=== PATIENT | male | born 1945 | race Caucasian/White ===

== ENCOUNTER 2016-08-09 11:09 | Inpatient (IN) | payer OTHER, MEDICAID ==
[2016-04-06 17:33] VITALS: Ht 170.2 cm; Wt 73.5 kg
[~2016-08-09] VITALS: Ht 170.2 cm; Wt 73.5 kg
[~2016-08-09 11:09] MED LIST: AMLO5TAB4 PO; PARO-41 PO; PRAV20TA PO; TRAZ-123 PO
[2016-08-09 11:15] VITALS: BP 124/83; PULSE 85; RESP 16; O2SAT 96
--- NOTE | 2016-08-09 11:15 | NUR ---
Arrived via BLS ambulance for eval of right knee pain after fall. Patient to ER bed 5 to gown for evaluation. Side rails up. Report given to Rosalva ANDERSON.
--- NOTE | 2016-08-09 11:20 | NUR ---
Dr Lucio at bedside examining patient
--- NOTE | 2016-08-09 11:30 | NUR ---
16# FR In and Out catheter with use of sterile technique. Immediate return of 100 ml urine noted. Urine sample collected and sent to lab. Pt tolerated procedure . Patient unable to toilet self.
--- NOTE | 2016-08-09 11:35 | NUR ---
Pt brought by BLS, A&O to name ,Hx of dementia, Pt had a mechanical fall yesterday, c/o R knee pain 2/10, skin pink and warm, cap refill <3, VSS, no open wounds noted.
[2016-08-09 12:13] LABS: BASOPHILS # (AUTO) 0.1 K/uL (0.0-0.2); BASOPHILS % (AUTO) 0.7 % (0.0-2.0); EOSINOPHILS # (AUTO) 0.1 K/uL (0.0-0.4); EOSINOPHILS % (AUTO) 0.8 % (0.0-4.0); HEMOGLOBIN 16.1 g/dL (14.0-18.0); LYMPHOCYTES # (AUTO) 1.5 K/uL (1.0-5.5); LYMPHOCYTES % (AUTO) 16.7 % (20.5-51.5); MEAN CORPUSCULAR HEMOGLOBIN 25 pg (27-31); MEAN CORPUSCULAR HGB CONC 32 % (32-36); MEAN CORPUSCULAR VOLUME 79 fL (79.0-98.0); MONOCYTES # (AUTO) 0.9 K/uL (0.0-1.0); MONOCYTES % (AUTO) 10.4 % (1.7-9.3); NEUTROPHILS # (AUTO) 6.2 K/uL (1.8-7.7); NEUTROPHILS % (AUTO) 71.4 % (40.0-70.0); PLATELET COUNT (AUTO) 170 K/uL (130-430); RED BLOOD CELL COUNT(AUTO) 6.47 MIL/uL (4.2-6.2); RED CELL DISTRIBUTION WIDTH 13.3 % (9.0-15.0); WHITE BLOOD COUNT (AUTO) 8.8 K/uL (4.8-10.8)
[2016-08-09 12:24] LABS: ANION GAP 5 (5-15); CALCIUM 9.3 mg/dL (8.4-11.0); CHLORIDE 106 mmol/L (98-107); CREATININE 0.96 mg/dL (0.55-1.30); GLUCOSE 143 mg/dL (70-99); POTASSIUM 3.6 mmol/L (3.5-5.1); SODIUM SERUM 140 mmol/L (136-145); UREA NITROGEN, BLOOD 16 mg/dL (8-21)
[2016-08-09 12:27] LABS: PROTHROMBIN TIME 10.9 SECS (9.5-12.5)
[2016-08-09 12:35] LABS: ALANINE AMINOTRANSFERASE 15 U/L (12-78); ALBUMIN 3.5 g/dL (3.4-4.8); ASPARTATE AMINOTRANSFERASE 20 U/L (10-37); LIPASE 70 U/L (73-393); TOTAL BILIRUBIN 0.5 mg/dL (0.0-1.0)
[2016-08-09 12:40] LABS: BILIRUBIN,URINE NEGATIVE (NEGATIVE); BLOOD, URINE 2+ (NEGATIVE); CLARITY/URINE CLEAR (CLEAR); COLOR,URINE YELLOW (YELLOW); GLUCOSE,URINE NEGATIVE (NEGATIVE); KETONES,URINE NEGATIVE (NEGATIVE); LEUKOCYTE ESTERASE ,URINE NEGATIVE (NEGATIVE); NITRITE, URINE NEGATIVE (NEGATIVE); PROTEIN URINE NEGATIVE (NEGATIVE); UROBILINOGEN,URINE 0.2 (0.2-1.0)
[2016-08-09 13:01] LABS: BACTERIA,URINE RARE /HPF (None Seen); MUCUS,URINE 1+ /LPF (None Seen); RBC,URINE 0-3 /HPF (0-3); WBC,URINE 0-3 /HPF (0-3)
[2016-08-09] MEDS ORDERED: RISP0.253 PO (13:50)
[2016-08-09] MEDS ORDERED: AMLO5TAB4 PO (13:50)
--- NOTE | 2016-08-09 14:13 | NUR ---
Pt on stable condition, denies pain or discomfort
--- NOTE | 2016-08-09 14:58 | NUR ---
Admission Note Received patient from ER with diagnosis of ataxia. Initial Plan of Care discussed-with daughter, verbalized understanding. Family at bedside. Daughter oriented to room, call light, pain management and safety.
[2016-08-09 15:00] VITALS: BP 135/86; PULSE 76; RESP 18; TEMP 97.6; O2SAT 95
--- NOTE | 2016-08-09 15:05 | NUR ---
Patient will be admitted to care of Dr Pretty. Admitted to medsurg unit. Will go to room 121A. Belongings list completed. Summary report printed. Report given to admitting nurse .
--- NOTE | 2016-08-09 15:15 | NUR ---
Routine Patient resting comfortably in bed with Dr. Pretty at bedside. Patient stable.
--- NOTE | 2016-08-09 15:28 | NUR ---
NEURO CONSULT Spoke with Sidra regarding request for consultation with Dr. Castle ([phone]) for reason: ataxia. Dr. Diamond is currently elderly companion.
[2016-08-09 16:44] VITALS: BP 140/93; PULSE 76; RESP 20; TEMP 98.8; O2SAT 92
--- NOTE | 2016-08-09 16:45 | NUR ---
Routine Patient resting comfortably in bed with daughterBonnie at bedside. No distress noted at this time. No complaint of pain. Patient stable.
--- NOTE | 2016-08-09 17:31 | NUR ---
PSYCH CONSULT Spoke with exchange regarding request for consultation with Dr. Ramos ([phone]) for reason: dementia.
--- NOTE | 2016-08-09 19:50 | NUR ---
PM SHIFT ASSESSMENT Received patient awake in bed, aox1. Confused unable to answer questions appropriately. Patient in no distress, vital signs stable. IV line placed to left forearm with 20 gauge catheter. Will watch for signs of infiltration. Safety and fall measures in place, will closely monitor.
[2016-08-09 20:00] VITALS: BP 113/53; PULSE 76; RESP 18; TEMP 97.7; O2SAT 95
[2016-08-09] MEDS ORDERED: traZODone HCL 50 MG TABLET (DESYREL) PO SCH (21:00)
[2016-08-09] MEDS: PRAVASTATIN SODIUM 20 MG TABLET (PRAVACHOL) PO SCH (21:00)
[2016-08-09] MEDS ORDERED: risperiDONE 0.25 MG TABLET (RisperDAL) PO SCH (21:00)
--- NOTE | 2016-08-09 21:45 | NUR ---
RN ROUNDS Patient resting comfortably, respirations even and unlabored, repositioned for comfort, safety measures in place, will closely monitor.
[2016-08-09 23:37] VITALS: BP 128/79; PULSE 69; RESP 18; TEMP 97.1; O2SAT 97
--- NOTE | 2016-08-09 23:38 | NUR ---
RN ROUNDS Patient sleeping, respirations even and unlabored, vital signs stable. Repositioned and turned with pillow support. Safety measures in place, will closely monitor.
--- NOTE | 2016-08-10 01:17 | NUR ---
RN ROUNDS Patient continues to sleep, respirations even and unlabored, vital signs are stable. Repositioned and turned. Safety measures in place, will closely monitor.
--- NOTE | 2016-08-10 03:26 | NUR ---
RN ROUNDS Patient resting comfortably in bed, no distress noted, repositioned with pillow support, safety measures in place, will closely monitor.
--- NOTE | 2016-08-10 04:32 | NUR ---
RN ROUNDS Patient awake, in no distress, no facial grimacing noted for pain, vital signs stable. Repositioned with pillow support, safety measures in place, will closely monitor.
[2016-08-10 05:25] VITALS: BP 123/93; PULSE 64; RESP 18; TEMP 98.7; O2SAT 97
--- NOTE | 2016-08-10 06:27 | NUR ---
RN ROUNDS Patient resting comfortably in bed, no distress noted, repositioned with pillow support, safety measures maintained through out shift, needs attended to, will closely monitor until report given to am nurse.
--- NOTE | 2016-08-10 06:51 | NUR ---
AM ROUNDS Pt sleeping. easily wakes with verbal stimuli...Pt pleasantly confused. Alert only to name...HL to LFA flushes well..Pt denies pain at this time...Nurse will remain in room...Will cont to monitor
--- NOTE | 2016-08-10 06:53 | NUR ---
MD Dr. Ramos (psych) made rounds at patients bedside, new medication orders ordered.
--- NOTE | 2016-08-10 08:00 | NUR ---
DAUGHTER AT BEDSIDE FEEDING PT
[2016-08-10] MEDS ORDERED: PARoxetine HCL 20 MG TABLET PO SCH (09:00)
[2016-08-10] MEDS: PARoxetine HCL 20 MG TABLET PO SCH (09:59)
[2016-08-10] MEDS: risperiDONE 0.25 MG TABLET (RisperDAL) PO SCH (10:00)
[2016-08-10] MEDS: amLODIPine BESYLATE 5 MG TABLET PO SCH (10:00)
--- NOTE | 2016-08-10 10:03 | NUR ---
Nutrition Update Audie Scale 18 noted. Pt admitted for ataxia. Diet: regular BMI: 25.4 kg/m2 RD to follow per nutrition care standards.
--- NOTE | 2016-08-10 10:45 | NUR ---
PT UP AMBULATING W/FWW & PHYSICAL THERAPY
--- NOTE | 2016-08-10 12:00 | NUR ---
FREDI AND HARRISON FROM [facility] REQUESTED FOR TO CHANGE RIPERADAL TO DEPAKOTE, BECAUSE RIPERADAL HAS AFFECTED HIS GAIT...IF ANY QUESTIONS CALL HARRISON (COMMUNITY OUTREACH ADVOCATE)[phone]
--- NOTE | 2016-08-10 14:02 | NUR ---
DR GUIDRY AT BEDSIDE SPEAKING WITH HALLE (DAUGHTER) REGARDING PLAN OF CARE
--- NOTE | 2016-08-10 16:00 | NUR ---
ROUNDS PT STABLE...MOVING AROUND IN BED. PT CAN NOT SIT/LIE STILL...WILL CONT TO MONITOR
[2016-08-10] MEDS ORDERED: LORazepam 2 MG/ML VIAL IVP ONE (16:15)
--- NOTE | 2016-08-10 18:00 | NUR ---
BORDER MACHINE OPERATOR AT BEDSIDE FOR DOPPLER
--- NOTE | 2016-08-10 18:05 | NUR ---
IV ATIVAN GIVEN BY COVERING NURSE PRIOR TO ULTRASOUND
--- NOTE | 2016-08-10 19:00 | NUR ---
SLEEPING PT STABLE..SLEEPING AT THIS TIME...D/O AT BEDSIDE
--- NOTE | 2016-08-10 20:00 | NUR ---
ROUNDS PATIENT SLEEPING AT THIS TIME, AROUSABLE TO LIGHT TOUCH, NOT IN DISTRESS, VITALS STABLE. ASSESSMENT DONE AND DOCUMENTED. SEE FLOWSHEET. NEEDS ATTENDED TO. REPOSITIONED AND MADE COMFORTAB LE. SAFETY AND FALL PRECAUTION MEASURES IN PLACED. SITTER AT THE BEDSIDE FOR SAFETY. BED IN LOW AND LOCKED POSITION. CALL LIGHT WITHIN REACH.
[2016-08-10] MEDS: PRAVASTATIN SODIUM 20 MG TABLET (PRAVACHOL) PO SCH (21:00)
[2016-08-10] MEDS: traZODone HCL 50 MG TABLET (DESYREL) PO SCH (21:00)
[2016-08-10] MEDS: risperiDONE 1 MG TABLET (RisperDAL) PO SCH (21:00)
--- NOTE | 2016-08-10 21:00 | NUR ---
NOTES DUE MEDICATIONS NOT GIVEN AT THIS TIME, PATIENT STILL ASLEEP AND SGTILL VERY DROWSY WHEN AWAKEN TO. WILL CONTINUE TO MONITOR.
[2016-08-10 23:00] VITALS: BP 133/80; PULSE 66; RESP 18; TEMP 98.6; O2SAT 96
[2016-08-10] MEDS ORDERED: ASPIRIN 81 MG TABLET(ECOTRIN) PO ONE (23:00)
--- NOTE | 2016-08-11 | NUR ---
PATIENT RESTING: Patient resting quietly. No acute distress noted. Vital signs within normal range.
--- NOTE | 2016-08-11 02:15 | NUR ---
ROUNDS PATIENT ASLEEP, NO SOB NOTED, VITALS STABLE, WILL CONTINUE TO MONITOR.
--- NOTE | 2016-08-11 04:00 | NUR ---
PATIENT RESTING: Patient resting quietly. No acute distress noted. Vital signs within normal range.
[2016-08-11 04:07] VITALS: BP 124/62; PULSE 70; RESP 18; TEMP 98; O2SAT 21; O2SAT 97
--- NOTE | 2016-08-11 06:50 | NUR ---
CLOSING NOTES PATIENT STILL ASLEEP, VITALS STABLE, NO SIGNS OF ANY PAIN AND DISCOMFORT AT THI STIME. ALL NEEDS MET. WILL ENDORSE TO INCOMING SHIFT NURSE.
[2016-08-11 06:58] LABS: CHOLESTEROL 176 mg/dL (<200); HDL CHOLESTEROL 62 mg/dL (>45); LDL CHOLESTEROL 93 mg/dL (<100); TRIGLYCERIDES 62 mg/dL (30-150)
[2016-08-11 08:00] VITALS: BP 142/90; PULSE 84; RESP 20; TEMP 98.6; O2SAT 94
--- NOTE | 2016-08-11 08:00 | NUR ---
RECEIVED PT IN BED, SITTER AT BEDSIDE, PT IS ALERT AND AWAKE, NO C/O PAIN. NO DISTRESS.
[2016-08-11] MEDS: PARoxetine HCL 20 MG TABLET PO SCH (08:27)
[2016-08-11] MEDS: amLODIPine BESYLATE 5 MG TABLET PO SCH (08:28)
[2016-08-11] MEDS: risperiDONE 0.25 MG TABLET (RisperDAL) PO SCH (08:28)
[2016-08-11 12:00] VITALS: BP 116/66; PULSE 85; RESP 21; TEMP 99.1; O2SAT 97
--- NOTE | 2016-08-11 13:33 | NUR ---
PAGED DR GUIDRY FOR ORDER FOR ATIVAN FOR MRI
[2016-08-11] MEDS ORDERED: LORazepam 2 MG/ML VIAL IVP ONE (14:00)
--- NOTE | 2016-08-11 14:02 | NUR ---
Notes No answer at MRI's extension.
--- NOTE | 2016-08-11 14:30 | NUR ---
PHYSICAL THERAPY CO-SIGN The Physical Therapy Progress Notes documented by Science Intern have been reviewed. Reviewed/Co-Signed by: Meg Esteban, PT Documentation Done by: Franklyn Emery PTA I concur with the documentation of this ANGLE SHEAR OPERATOR. Plan: continue PT as per plan of care. Addendum: 08/11/16 at 1532 by Meg Esteban PT Amended: Links added.
--- NOTE | 2016-08-11 14:45 | NUR ---
PT TAKEN TO MRI.
[2016-08-11 16:00] VITALS: BP 139/95; PULSE 98; RESP 21; TEMP 99.2; O2SAT 98
--- NOTE | 2016-08-11 16:00 | NUR ---
PT BACK FROM MRI WITH NO DISTRESS, PT IN BED, SITTER AT BEDSIDE.
--- NOTE | 2016-08-11 18:00 | NUR ---
PT IN BED, IN BED, SITTER ASSISTING PT WITH DINNER , NO S/S PAIN.
[2016-08-11 19:15] VITALS: BP 126/85; PULSE 96; RESP 20; TEMP 98.8; O2SAT 98
--- NOTE | 2016-08-11 19:26 | NUR ---
notes received the pt from the day nurse pt very confused keeps pulling the linen off.family are here at the bedside.saline lock intact to lt forearm.no redness or swelling noted. call light within reach.safety measures in progress.continue to monitor.
--- NOTE | 2016-08-11 19:40 | NUR ---
notes bed alarm is on.continue to monitor.
--- NOTE | 2016-08-11 19:53 | NUR ---
notes pt incontinent of urine,pt cleaned ,linen changed.continue to monitor.
[2016-08-11] MEDS: risperiDONE 1 MG TABLET (RisperDAL) PO SCH (20:50)
[2016-08-11] MEDS: traZODone HCL 50 MG TABLET (DESYREL) PO SCH (20:51)
[2016-08-11] MEDS: PRAVASTATIN SODIUM 20 MG TABLET (PRAVACHOL) PO SCH (20:51)
--- NOTE | 2016-08-11 20:54 | NUR ---
notes pt resting with no complaints ,continue to monitor.
--- NOTE | 2016-08-11 23:25 | NUR ---
NOTES PT SLEEPING,NO DISTRESS NOTED.CONTINUE TO MONITOR.
[2016-08-12 00:04] VITALS: BP 128/82; PULSE 87; RESP 18; TEMP 98.2; O2SAT 98
--- NOTE | 2016-08-12 03:30 | NUR ---
notes pt sleeping,no distress noted.appears comfortable.continue to monitor.
--- NOTE | 2016-08-12 05:39 | NUR ---
notes pt incontinent of urine,pt cleaned,linen changed.pt with no complaints.bed alarm is on.
--- NOTE | 2016-08-12 05:45 | NUR ---
notes dr ramsey is at the bedside.
--- NOTE | 2016-08-12 06:14 | NUR ---
closing notes pt awake watching tv,remains confused.will endorse the care of the pt to the day nurse.
--- NOTE | 2016-08-12 07:30 | NUR ---
AM ROUNDS Pt lying in bed. Awake, confused, unable to follow commands. HL to LFA flushes well...D/O at bedside...will cont to monitor
[2016-08-12 08:00] VITALS: BP 139/89; PULSE 89; RESP 20; TEMP 98.6; O2SAT 97
[2016-08-12] MEDS: PARoxetine HCL 20 MG TABLET PO SCH (08:15)
[2016-08-12] MEDS: ASPIRIN 81 MG TAB.CHEW PO SCH (08:16)
[2016-08-12] MEDS: amLODIPine BESYLATE 5 MG TABLET PO SCH (08:32)
--- NOTE | 2016-08-12 09:00 | NUR ---
INCONTINENT OF URINE LEANNE-CARE DONE...LINEN AND GOWN CHANGED...WILL CONT TO MONITOR
--- NOTE | 2016-08-12 10:00 | NUR ---
NO CHANGES, REMAINS PLEASANTLY CONFUSED PT CONTINUOUSLY MOVING AROUND IN BED, UNABLE TO SIT STILL. HOLDING AND TWISTING BLANKET...WILL CONT TO MONITOR
--- NOTE | 2016-08-12 12:30 | NUR ---
INCONTINENT OF STOOL PT HAD A BASEBALL SIZE SOFT FORMED BM...PT CLEANED, LINEN AND GOWN CHANGED..WILL CONT TO MONITOR
[2016-08-12] MEDS: QUEtiapine FUMARATE 25 MG TABLET PO SCH ×2 (13:05→18:01)
--- NOTE | 2016-08-12 13:22 | NUR ---
ROUNDS pt stable. confused. unable to follow commands, talking to himself...D/O remains at bedside...will cont to monitor
--- NOTE | 2016-08-12 14:30 | NUR ---
PHYSICAL THERAPY CO-SIGN The Physical Therapy Progress Notes documented by Sfdc Architect have been reviewed. Reviewed/Co-Signed by: Meg Esteban, PT Documentation Done by: David Queen PTA I concur with the documentation of this DENTAL TECHNICIAN INSTRUCTOR. Plan: continue PT as per plan of care. Addendum: 08/12/16 at 1446 by Meg Esteban PT Amended: Links added.
--- NOTE | 2016-08-12 15:16 | NUR ---
SLEEPING PT SLEEPING, RESPIRATIONS EVEN/UNLABORED. SNORING...D/O AT BEDSIDE...WILL CONT TO MONITOR
--- NOTE | 2016-08-12 15:30 | NUR ---
DISCHARGE PLANNING Faxed SNF referral to [facility] [phone] [phone] for possible discharge to SNF. CM to follow up in AM with bed assignment. Transportation packet in nurses station. Any ambulance can be arranged. Addendum: 08/12/16 at 1713 by Nydia Lee DP Called [facility] spoke with office manager receptionist who stated admitting is gone for the day advised DCP to follow up in AM. Note left for CM to follow up in AM.
[2016-08-12 16:00] VITALS: BP 130/94; PULSE 74; RESP 18; TEMP 98.2; O2SAT 96
--- NOTE | 2016-08-12 18:17 | NUR ---
PT SITTING UP IN BED EATING DINNER PT CALM, NURSE AT BEDSIDE ASSISTING WITH FOOD
[2016-08-12 19:30] VITALS: BP 129/95; PULSE 81; RESP 20; TEMP 97; O2SAT 97
--- NOTE | 2016-08-12 19:30 | NUR ---
NOTES; SEEN PT IN BED TALKING TO HIMSELF. PT IS VERY CONFUSED. REORIENTED TO NAME, PLACE,TIME, AND SURROUNDING. NO APPARENT DISTRESS NOTED. VITAL SIGNS STABLE, AFEBRILE. IV SALINE LOCK TO THE LEFT FOREARM, PATENT. NO SIGNS OF INFECTION NOTED ON IV SITE. OBSERVED PT MOVE AROUND AND REPOSITION HIMSELF. NO FACIAL GRIMACING OF PAIN NOTED. BED LOCKED, AND IN LOW POSITION. SIDE RAILS UP X3. CALL LIGHT WITHIN REACH. DIRECT OBSERVER REMAIN AT BEDSIDE.
[2016-08-12] MEDS: PRAVASTATIN SODIUM 20 MG TABLET (PRAVACHOL) PO SCH (20:19)
[2016-08-12] MEDS: traZODone HCL 50 MG TABLET (DESYREL) PO SCH (20:19)
[2016-08-12] MEDS: QUEtiapine FUMARATE 100 MG TABLET PO SCH (20:20)
--- NOTE | 2016-08-12 20:20 | NUR ---
NOTES; SCHEDULED PO MEDICATION CRUSHED AND ADMINISTERED WITH APPLE SAUCE. PT TOLERATED MEDS WELL.
--- NOTE | 2016-08-12 22:10 | NUR ---
NOTES; INCONTINENT OF URINE. TOTAL BED BATH GIVEN, TOTAL LINEN CHANGED. NO APPARENT DISTRESS NOTED.SAFETY MEASURES IN PROGRESS. .DIRECT OBSERVER REMAIN AT BEDSIDE.
--- NOTE | 2016-08-12 23:15 | NUR ---
NOTES; IN BED, CONFUSED. ATTEMPTS TO GET OUT OF BED. PT REORIENTED TO NAME, PLACE,TIME, AND SURROUNDING. NO FACIAL GRIMACING OF PAIN NOTED. SAFETY MEASURES IN PROGRESS. DIRECT OBSERVER AT BEDSIDE AT ALL TIMES.
[2016-08-13] VITALS: BP 110/80; PULSE 68; RESP 18; TEMP 96.9; O2SAT 94
--- NOTE | 2016-08-13 00:45 | NUR ---
NOTES; APPEARED TO BE SLEEPING, EYES CLOSED. RESPIRATION EVEN AND UNLABORED. NO ACUTE DISTRESS NOTED. SAFETY MEASURES IN PROGRESS. DIRECT OBSERVER AT BEDSIDE AT ALL TIMES.
--- NOTE | 2016-08-13 02:30 | NUR ---
NOTES; APPEARED TO BE SLEEPING, EYES CLOSED. RESPIRATION EVEN AND UNLABORED. NO ACUTE DISTRESS NOTED. SAFETY MEASURES IN PROGRESS. DIRECT OBSERVER AT BEDSIDE AT ALL TIMES.
--- NOTE | 2016-08-13 03:30 | NUR ---
NOTES; INCONTINENT OF URINE. BED BATH GIVEN, LINEN CHANGED. NO APPARENT DISTRESS NOTED. SAFETY MEASURES IN PROGRESS. DIRECT OBSERVER REMAIN AT BEDSIDE.
[2016-08-13 04:30] VITALS: BP 115/82; PULSE 66; RESP 18; TEMP 97.2; O2SAT 96
--- NOTE | 2016-08-13 05:00 | NUR ---
NOTES; APPEARED TO BE SLEEPING, EYES CLOSED. RESPIRATION EVEN AND UNLABORED. NO ACUTE DISTRESS NOTED. SAFETY MEASURES IN PROGRESS. DIRECT OBSERVER AT BEDSIDE AT ALL TIMES.
--- NOTE | 2016-08-13 06:33 | NUR ---
NOTES; RESTING QUIETLY, EASILY AROUSED. INCONTINENT OF URINE. BED BATH GIVEN, LINEN CHANGED. NO APPARENT DISTRESS NOTED. ALL NEEDS ATTENDED. SAFETY MEASURES MAINTAINED.DIRECT OBSERVER REMAIN AT BEDSIDE.
[2016-08-13 08:00] VITALS: BP 125/76; PULSE 64; RESP 18; TEMP 97.4; O2SAT 95
--- NOTE | 2016-08-13 08:00 | NUR ---
INITIAL NOTE PT LAYING DOWN, RESTING , EASY TO AROUSE, PT ORIENTED TO NAME ONLY, VERY CONFUSED, SPEAKS TO SELF AND OUT OF CONTEXT, NO S/S OF DISTRESS NOTED, VSS, IV SITE TO LFA INTACT, PATIENT, NO S/S OF INFILTRATION NOTED, SAFETY MEASURES IN PLACE, SITTER AT BEDSIDE, BED IN LOW PSOTION AND LOCKED, SIDE RAILS UP X4, CALL LIGHT WITHIN REACH,WILL FOLLOW UP
[2016-08-13] MEDS: QUEtiapine FUMARATE 25 MG TABLET PO SCH ×2 (09:39→14:31)
[2016-08-13] MEDS: amLODIPine BESYLATE 5 MG TABLET PO SCH (09:39)
[2016-08-13] MEDS: ASPIRIN 81 MG TAB.CHEW PO SCH (09:40)
[2016-08-13] MEDS: PARoxetine HCL 20 MG TABLET PO SCH (09:40)
--- NOTE | 2016-08-13 09:45 | NUR ---
ROUNDS AM MEDICATION PROVIDED, MEDICATION CRUSHED AND GIVEN WITH PUDDING, PT COOPERATIVE, RESPONDS WELL TO YI SPEAKING, SAFETY MEASURES IN PLACE, SITTER AT BEDSIDE, WILL FOLLOW UP
--- NOTE | 2016-08-13 12:00 | NUR ---
ROUNDS PT SITTING UP IN BED, SITTER AT BEDSIDE, MEAL TRAY SET UP AND AUTOMATION AND CONTROLS MANAGER AIDING IN FEEDING, PT TOLERATING MODERATLEY, HAS TO BE ENCOURAGED AND REMINDED TO KEEP ON EATING, SAFETY MEASURES IN PLACE, WILL FOLLOW UP
[2016-08-13 12:33] VITALS: BP 105/66; PULSE 74; RESP 19; TEMP 97.4; O2SAT 96
--- NOTE | 2016-08-13 14:00 | NUR ---
ROUNDS PT LAYING IN BED, TALKING TO SELF, CONFUSED, SITTER AT BEDSIDE, NO S/S OF DISTRESS OR COMPLAINT OF PAIN AT THIS TIME, SAFETY MEASURES IN PLACE, WILL FOLLOW UP
--- NOTE | 2016-08-13 15:02 | NUR ---
CM DC PLANNING PER CM DCP ASSESSMENT: "DISCUSSED PLAN OF CARE WITH Pt's DAUGHTER/HALLE WHO IS AN EMPLOYEE OF THIS FACILITY. HALLE STATED THAT PATIENT HAS BEEN DOING WELL AT [facility] AND SHE WOULD PREFER HE RETURNS THERE. IF SNF IS RECOMMENDED BY , THERE HER CHOICE IS [facility] WHERE HE WAS JUST RECENTLY. HALLE STATED SHE IS GOING OUT OF TOWN ON 08/11/16 AND THE PRIMARY CONTACT SHOULD BE HER BROTHER/MARLON: [phone] (CELL). IF THERE ARE ANY DC CONCERNS, MARLON WILL CONTACT HER TO DISCUSS". PER DR. GUIDRY AND DR. CLEMENT, THE POC IS FOR Pt TO GO TO SNF TO GET BETTER ORIENTED PRIOR TO GOING BACK TO THE [facility]. AND DR. CLEMENT IS WILL TO FOLLOW Pt AT [facility] BECAUSE THEY HAVE A LOCKED FACILITY THAT CAN MONITOR THE Pt MORE SAFELY DUE TO HIS WANDERING. Addendum: 08/13/16 at 1932 by Lyla Hutchison RN SPOKE WITH DIR OF MARKETING & ADMISSIONS/DYLAN FOR [facility] ABOUT HAVING Pt ADMITTED THERE ON THE LOCKED UNIT WITH DR. CLEMENT FOLLOWING S/P THIS IN-Pt STAY FOR MEDICATION STABILIZATION PRIOR TO Pt TRANSFERRING BACK TO THE [place] [facility]. INQUIRY SENT TO DYLAN AT FAX #; [phone]. NO CALL BACK OR MESSAGES RECEIVED BACK FROM [facility] REGARDING AVAILABLE BED OR ACCEPTANCE. CALLED TO SON/MARLON TO UPDATE RE: PLAN OF CARE; AND ASKED ABOUT Pt BEING TRANSFERRED TO [facility]. FOR DR. CLEMENT TO FOLLOW Pt UNTIL HE IS STABLE FOR RETURN TO [facility]. PER MARLON, HE STATED THAT HE AND SISTER/HALLE ARE NOT FAMILIAR WITH [facility]. AND WOULD PREFER FOR Pt TO GO TO [facility] OR [facility] (THAT ALSO HAS A LOCKED UNIT); AND, Pt HAS BEEN THERE RECENTLY. CM UNDERSTOOD FAMILY CONCERNS; AND, WILL F/UP WITH [facility] OR [facility] FOR AVAILABLE Pt IS READY TO DC TODAY IF MDs ARE IN AGREEMENT. 1549: SPOKE WITH YAYA AT [facility] WEEKEND INTAKE FOR [facility], [address] [place] IS AT [facility]; REFAXED INQUIRY SENT TO [facility] ON 08/12/16 AT 1530 TO: [phone]. NO CALL BACK BEFORE END OF WORKDAY. 1645: S/W DR. GUIDRY ABOUT Pt's TRANSFER TO [facility] LOCKED UNIT; AND, INFORMED THAT CM S/W SON/MARLON WHO STATED HE AND SISTER/HALLE WOULD PREFER Pt TO GO TO [facility] OR [facility] THAT ALSO HAS A LOCKED UNIT. CM TO HAVE MONDAY CM/NISHA FOLLOW-UP WITH DC TOMORROW, 08/14/16, IF BED AVAILABLE. DR. GUIDRY STATED HIS CONCERN WAS THAT Pt NOT FALL THRU THE CRACKS WITH THE MEDICATION STABILIZATION DR. SPANGLER HAS BEEN THE PSYCHIATRIST FOLLOWING THE Pt HERE AT [facility]. CALL BACK TO SON/MARLON AND LEARNED THAT Pt DOES NOT HAVE PART B INSURANCE MEDICARE COVERAGE HE HAS BEEN FOLLOWED AT [facility] UNDER HIS [facility] BENEFITS; AND, DISCUSSED AT THIS TIME THAT DUE TO LONG TIME WITHOUT MEDICARE PART B, Pt WOULD HAVE TO PAY VERY HIGH PREMIUMS TO OBTAIN PART B AT THIS DATE DUE TO PENALTIES THAT WOULD BE ADDED FOR DURATION OF HIM NOT HAVING COVERAGE. ADDITIONALLY, FAMILY ARE PAYING [id number] FOR Pt TO LIVE AT [facility]; AND THEY USE [facility] FOR MD VISITS. PER MARLON, FAMILY WOULD BE WILLING TO FOLLOW-UP WITH DR. SPANGLER AN OUT-Pt AND POSSIBLY PAY OUT OF POCKET FOR DR. SPANGLER MED THE [facility] FOLLOW-UP. FURTHER DISCUSSED WITH MARLON, THAT THEY CAN FIND OUT IF DR. SPANGLER WOULD SEE Pt AT [facility] OR WHETHER FAMILY MAY WANT TO TALK WITH HIS PRIMARY [facility] MD TO FIND OUT WHO THE PSYCH MD AT [facility] WOULD BE; AND, FAMILY HAS THE OPTION TO FOLLOW-UP WITH THEM FOR FUTURE MED MANAGEMENT. MARLON STATED THAT FAMILY'S BIGGEST CONCERN IS THEY DO NOT WANT Pt TO BE ON MEDICATIONS THAT WILL SEDATE HIM TO MUCH SO THAT HE IS NOT ABLE TO HAVE ANY MOBILITY OR QUALITY OF LIFE AT THE CURRENT [facility] RESIDENCE. CM LEFT INFO FOR CM/NISHA TO F/UP ON BED AVAILABILITY ON 08/14/16.
[2016-08-13 16:02] VITALS: BP 151/99; PULSE 87; RESP 18; TEMP 96.9; O2SAT 96
--- NOTE | 2016-08-13 16:50 | NUR ---
DR GUIDRY AT BEDSIDE.
--- NOTE | 2016-08-13 19:00 | NUR ---
CLOSING NOTE PT LAYING IN BED, ORIENTED TO NAME ONLY, CONFUSED, ATTEMPTS TO CLIMB OUT OF BED SEVERAL TIMES, SITTER AT BEDSIDE, IV TO LFA PATENT AND INTACT, NO S/S OF DISTRESS OR COMPLAINT OF PAIN. ALL NEEDS ATTENDED TO THROUGH OUT SHIFT, SAFETY MEASURES MAINTAINED, BED IN LOW POSITION AND LOCKED, SIDE RAILS UP X4, CALL LIGHT WITHIN REACH, WILL GIVE REPORT TO FOLLOWING SHIFT.
[2016-08-13 19:45] VITALS: BP 129/91; PULSE 81; RESP 20; TEMP 96.8; O2SAT 97
--- NOTE | 2016-08-13 19:50 | NUR ---
NOTES; SEEN PT IN BED CALM AND WATCHING TV, CONFUSED. REORIENTED TO NAME, PLACE,TIME, AND SURROUNDING. NO APPARENT DISTRESS NOTED. VITAL SIGNS STABLE, AFEBRILE. IV SALINE LOCK TO THE LEFT FOREARM, PATENT. NO SIGNS OF INFECTION NOTED ON IV SITE. OBSERVED PT MOVE AROUND AND REPOSITION HIMSELF. NO FACIAL GRIMACING OF PAIN NOTED. BED LOCKED, AND IN LOW POSITION. SIDE RAILS UP X3. CALL LIGHT WITHIN REACH. DIRECT OBSERVER REMAIN AT BEDSIDE.
[2016-08-13] MEDS: QUEtiapine FUMARATE 100 MG TABLET PO SCH (21:34)
[2016-08-13] MEDS: traZODone HCL 50 MG TABLET (DESYREL) PO SCH (21:34)
[2016-08-13] MEDS: PRAVASTATIN SODIUM 20 MG TABLET (PRAVACHOL) PO SCH (21:34)
--- NOTE | 2016-08-13 21:39 | NUR ---
NOTES; SCHEDULED PO MEDICATION CRUSHED AND ADMINISTERED WITH APPLE SAUCE. PT TOLERATED MEDS WELL.
--- NOTE | 2016-08-13 23:15 | NUR ---
NOTES; INCONTINENT OF URINE. PAD CHANGED AND LEANNE CARE PROVIDED BY COMPRESSOR SERVICE TECHNICIAN. LINEN CHANGED. NO APPARENT DISTRESS OR FACIAL GRIMACING OF PAIN NOTED. SAFETY MEASURES IN PROGRESS. DIRECT OBSERVER REMAIN AT BEDSIDE.
--- NOTE | 2016-08-14 01:32 | NUR ---
NOTES; APPEARED TO BE SLEEPING, EYES CLOSED. RESPIRATION EVEN AND UNLABORED. NO ACUTE DISTRESS NOTED. SAFETY MEASURES IN PROGRESS. DIRECT OBSERVER AT BEDSIDE AT ALL TIMES.
--- NOTE | 2016-08-14 03:00 | NUR ---
NOTES; INCONTINENT OF URINE. BED BATH GIVEN, LINEN CHANGED. NO APPARENT DISTRESS NOTED. SAFETY MEASURES IN PROGRESS. DIRECT OBSERVER REMAIN AT BEDSIDE.
[2016-08-14 04:00] VITALS: BP 138/93; PULSE 65; RESP 17; TEMP 96.9; O2SAT 98
--- NOTE | 2016-08-14 04:30 | NUR ---
NOTES; APPEARED TO BE SLEEPING, EYES CLOSED. RESPIRATION EVEN AND UNLABORED. NO ACUTE DISTRESS NOTED. SAFETY MEASURES IN PROGRESS. DIRECT OBSERVER AT BEDSIDE AT ALL TIMES.
--- NOTE | 2016-08-14 05:45 | NUR ---
NOTES; APPEARED TO BE SLEEPING, EYES CLOSED. RESPIRATION EVEN AND UNLABORED. NO ACUTE DISTRESS NOTED. SAFETY MEASURES IN PROGRESS. DIRECT OBSERVER AT BEDSIDE AT ALL TIMES.
[2016-08-14 07:01] LABS: BASOPHILS % (AUTO) 0.6 % (0.0-2.0); EOSINOPHILS # (AUTO) 0.3 K/uL (0.0-0.4); EOSINOPHILS % (AUTO) 3.4 % (0.0-4.0); HEMATOCRIT 49.4 % (36-54); HEMOGLOBIN 16.6 g/dL (14.0-18.0); LYMPHOCYTES # (AUTO) 2.7 K/uL (1.0-5.5); LYMPHOCYTES % (AUTO) 34.9 % (20.5-51.5); MEAN CORPUSCULAR HEMOGLOBIN 26 pg (27-31); MEAN CORPUSCULAR HGB CONC 34 % (32-36); MEAN CORPUSCULAR VOLUME 78 fL (79.0-98.0); MONOCYTES # (AUTO) 0.7 K/uL (0.0-1.0); MONOCYTES % (AUTO) 9.7 % (1.7-9.3); NEUTROPHILS # (AUTO) 3.9 K/uL (1.8-7.7); NEUTROPHILS % (AUTO) 51.4 % (40.0-70.0); PLATELET COUNT (AUTO) 184 K/uL (130-430); RED CELL DISTRIBUTION WIDTH 13.4 % (9.0-15.0); WHITE BLOOD COUNT (AUTO) 7.6 K/uL (4.8-10.8)
[2016-08-14 07:23] LABS: ANION GAP 4 (5-15); CALCIUM 9.2 mg/dL (8.4-11.0); CHLORIDE 105 mmol/L (98-107); CREATININE 1.05 mg/dL (0.55-1.30); GLUCOSE 100 mg/dL (70-99); POTASSIUM 3.8 mmol/L (3.5-5.1); SODIUM SERUM 140 mmol/L (136-145); UREA NITROGEN, BLOOD 19 mg/dL (8-21)
--- NOTE | 2016-08-14 07:30 | NUR ---
AM Initial Notes Pt sound asleep. No signs of facial grimacing for pain or discomfort. No distress noted. Direct observer inside room. Fall and safety precautions enforced with bed alarm armed, fall band on, and room close to nurse's station. Will monitor.
[2016-08-14 08:07] VITALS: BP 114/78; PULSE 83; RESP 20; TEMP 97.7; O2SAT 96
--- NOTE | 2016-08-14 08:30 | NUR ---
Breakfast Pt aaox1, confused but cooperative and calm. No complaints of pain or discomfort. No distress noted. Pt being fed by direct observer. Will monitor.
[2016-08-14] MEDS: ASPIRIN 81 MG TAB.CHEW PO SCH (09:02)
[2016-08-14] MEDS: amLODIPine BESYLATE 5 MG TABLET PO SCH (09:02)
[2016-08-14] MEDS: PARoxetine HCL 20 MG TABLET PO SCH (09:02)
[2016-08-14] MEDS: QUEtiapine FUMARATE 25 MG TABLET PO SCH ×2 (09:02→15:10)
--- NOTE | 2016-08-14 10:00 | NUR ---
Rounds Pt awake getting bed bath by TEXTURE ARTIST. No complaints of pain or discomfort. No distress noted. Will monitor.
--- NOTE | 2016-08-14 10:44 | NUR ---
DC PLANNING: TRIED TO CALL AHSAN-ADMISSION COORDINATOR AT [facility] TEL# [phone] SINCE 9 AM, STILL NOT AROUND, LEFT A MESSAGE TO NEPTALI AND MELVI MAJOR FOR HER TO RETURN MY CALL. TO F/U. Addendum: 08/14/16 at 1048 by Quyen Roberson RN BESSIE ROJAS [facility] ACCEPTED THE PATIENT TO ROOM #400--THEY WILL ASSIGN A 1: 1 NURSE FOR THE PATIENT. BUT FAMILY WANTS [facility].
--- NOTE | 2016-08-14 11:58 | NUR ---
Rounds Pt awake and very confused. No complaints of pain or discomfort. No distress noted. Incontinent care done. Kept comfortable. Direct observer inside room.
--- NOTE | 2016-08-14 13:16 | NUR ---
Rounds Pt awake with confusion but calm and cooperative. No significant changes noted. Incontinent care done. Repositioned and kept comfortable. Direct observer inside room.
--- NOTE | 2016-08-14 16:00 | NUR ---
Rounds Pt awake and confused. No complaints of pain or discomfort. No distress noted. Incontinent care done. Direct observer inside room. Fall and safety precautions enforced.
[2016-08-14 16:30] VITALS: BP 120/82; PULSE 83; RESP 20; TEMP 97.5; O2SAT 96
--- NOTE | 2016-08-14 18:30 | NUR ---
Closing notes Pt awake and continues to be confused. No significant changes noted. Will endorse care to incoming nurse.
--- NOTE | 2016-08-14 19:15 | NUR ---
change of shift.initial pt.assessment.pt.presents necessity4 sitter;delia;structural engineering drafting officer.pty.presents iv access:location:lt.forearm. o2 sat%=room air.general affect;calm.
[2016-08-14 19:35] VITALS: BP 158/95; PULSE 68; RESP 18; TEMP 97; O2SAT 99
--- NOTE | 2016-08-14 19:35 | NUR ---
Initial Notes Pt is awake, alert, oriented to name, confused. Pt denies any pain or discomfort at this time. Unable to fully discuss plan of care with patient due to cognitive limitations. No family available to discuss poc with at this time. IV intact, saline lock. Breathing is easy an unlabored. VSS. Safety precautions in place, side rails up x3 with bed in lowest, locked position, bed alarm on at all times, sitter present in room as ordered. All needs met at this time. Will continue to monitor closely. Call light within reach.
--- NOTE | 2016-08-14 19:45 | NUR ---
pt.assessed.pt.presents quiescent affect;calm.delia;elementary school tutor present in room.call light w/in pt's reach.
--- NOTE | 2016-08-14 20:00 | NUR ---
pt.assessed.pt.repositioned.pt.is awake.call light placed w/in pt's reach.
[2016-08-14] MEDS: traZODone HCL 50 MG TABLET (DESYREL) PO SCH (21:19)
[2016-08-14] MEDS: QUEtiapine FUMARATE 100 MG TABLET PO SCH (21:19)
[2016-08-14] MEDS: PRAVASTATIN SODIUM 20 MG TABLET (PRAVACHOL) PO SCH (21:20)
--- NOTE | 2016-08-14 22:00 | NUR ---
pt.assessed.pt.bathed/cleaned.pt.repositioned.pt.presents quiescent affect;calm,asleep. call light placed w/in pt's reach.
--- NOTE | 2016-08-15 | NUR ---
pt.assessed.pt.repositioned.pt.presents quiescent affect;calm,asleep.v/s assessed.values w/in normal limits. call light w/in normal limits.
[2016-08-15 00:21] VITALS: BP 139/80; PULSE 71; RESP 20; TEMP 98.7; O2SAT 95
--- NOTE | 2016-08-15 00:30 | NUR ---
PATIENT RESTING: Patient resting quietly. No acute distress noted. Vital signs within normal range.
--- NOTE | 2016-08-15 02:00 | NUR ---
pt.assessed.pt.repositioned.pt.presents quiescent affect;calm,asleep.call light w/in pt's reach.
--- NOTE | 2016-08-15 02:51 | NUR ---
Rounds Pt is sleeping comfortably in bed at this time. No acute distress or sob noted. All needs met. Call light in reach. Will continue to monitor.
--- NOTE | 2016-08-15 03:00 | NUR ---
pt.assessed.pt.presents quiescent affect;calm,asleep.call light w/in pt's reach.
--- NOTE | 2016-08-15 04:00 | NUR ---
pt.assessed.pt.repositioned.pt.presents quiescent affect;calm,asleep.call light w/in pt's reach.
--- NOTE | 2016-08-15 04:39 | NUR ---
PATIENT RESTING: Patient resting quietly. No acute distress noted. Vital signs within normal range.
[2016-08-15 05:17] VITALS: BP 136/74; PULSE 73; RESP 16; TEMP 98.7; O2SAT 95
--- NOTE | 2016-08-15 05:51 | NUR ---
pt.assessed.pt.presents quiescent affect;calm,asleep.pt.maintains cover/sheet over head.removed 2 assess general status.pt.arousable.call light w/in pt's reach.
--- NOTE | 2016-08-15 05:58 | NUR ---
Rounds Pt provided with royal care. Pt in stable condition. Pt is awake, alert and oriented to name. Call light in hand. Will continue to monitor.
--- NOTE | 2016-08-15 06:38 | NUR ---
Closing Notes Pt is resting comfortably in bed at this time. No acute distress or sob noted. IV intact. Pt in stable condition. VSS. Will endorse care to am nurse. Call light in hand. Will endorse care to am nurse.
[2016-08-15 08:45] VITALS: BP 110/76; PULSE 102; RESP 16; TEMP 96.9; O2SAT 95
--- NOTE | 2016-08-15 08:45 | NUR ---
INITIAL ROUNDS Received pt AAOx1, pleasantly confused and forgetful at times. No s/s resp distress, no c/o pain or discomfort. Sitter at bedside. Side rails up x3, room across from nursing station and bed alarm on for safety.
[2016-08-15] MEDS: amLODIPine BESYLATE 5 MG TABLET PO SCH (09:37)
[2016-08-15] MEDS: ASPIRIN 81 MG TAB.CHEW PO SCH (09:37)
[2016-08-15] MEDS: PARoxetine HCL 20 MG TABLET PO SCH (09:37)
[2016-08-15] MEDS: QUEtiapine FUMARATE 25 MG TABLET PO SCH ×2 (09:37→16:34)
--- NOTE | 2016-08-15 10:29 | NUR ---
DISCHARGE PLANNING Spoke with Yasir in admitting at [facility] patient denied. Spoke with Waldo at [facility] patient accepted and bed on hold for patient admission. Will follow up with family. Addendum: 08/15/16 at 1101 by Nydia Lee DP Called patient sam MASON [phone] left voice message requesting return call back. Meanwhile; faxed SNF referral to [phone]. Will follow up. Addendum: 08/15/16 at 1250 by Nydia Lee DP Received call from patient daughter Rianna regarding SNF placement. Rianna was updated and requesting return call back with [facility] response and asked if patient can return back to board and care. ARMIN Pritchard made aware. Rianna can be reached on her cell number with facility and MD decision. Addendum: 08/15/16 at 1250 by Nyida Lee DP [facility] left voice message requesting Dorie in admitting return call back. Will follow up.
--- NOTE | 2016-08-15 11:34 | NUR ---
ROUNDS Pt sitting up in bed talking with sitter, no s/s resp distress, no c/o pain or discomfort. No changes.
[2016-08-15 12:00] VITALS: BP 107/78; PULSE 97; RESP 18; TEMP 98; O2SAT 93
--- NOTE | 2016-08-15 15:07 | NUR ---
PHYSICAL THERAPY CO-SIGN The Physical Therapy Progress Notes documented by Coil Connector Repairer have been reviewed. I CONCUR W/QUANTITATIVE CONSULTANT NOTE; CONT PER TX PLAN Reviewed/Co-Signed by: Rani Zuniga PT Documentation Done by: JAYANT RODRIGUEZ QUANTITATIVE CONSULTANT Addendum: 08/15/16 at 1508 by Rani Zuniga PT Amended: Links added.
--- NOTE | 2016-08-15 15:25 | NUR ---
ROUNDS Pt resting quietly in bed with no s/s resp distress, no c/o pain or discomfort. Sitter remains at bedside for safety.
[2016-08-15 16:00] VITALS: BP 114/75; PULSE 85; RESP 18; TEMP 97.9; O2SAT 94
--- NOTE | 2016-08-15 16:16 | NUR ---
Discharge Planning Received order to DC patient back to [facility]. Contacted patient's dtr Rianna and updated her with plan of care. Rianna stated that she was still on the road traveling back home. She will make some calls and see if she can find another family member to take patient back to [facility] today. I told Rianna that she can call straight into nurses station once she knows who and when patient will be picked up.
--- NOTE | 2016-08-15 18:40 | NUR ---
CLOSING NOTE Pt resting quietly in bed with no s/s resp distress, no c/o pain or discomfort. Pt has discharge orders-awaiting call back from family regarding who will pick him up. Sitter at bedside, all precautions remain in place.
--- NOTE | 2016-08-15 19:45 | NUR ---
Notes Called Rianna patient's daughter telephone number [phone] regarding discharge order to [facility] lorena left message to ans machine.
--- NOTE | 2016-08-15 19:54 | NUR ---
Notes Rianna called back, informed her regarding discharge order, per Rianna nobody can pick-up patient to night. Charge nurse made aware. will notify Dr Chang.
--- NOTE | 2016-08-15 20:00 | NUR ---
Notes Informed Dr Chang that nobody can pick-up patient tonight to go to board and care, new order received to hold discharge. and also informed Dr Chang that med rec not done yet. charge nurse made aware.
[2016-08-15 20:32] VITALS: BP 106/63; PULSE 82; RESP 18; TEMP 98.5; O2SAT 95
[2016-08-15] MEDS: PRAVASTATIN SODIUM 20 MG TABLET (PRAVACHOL) PO SCH (20:42)
[2016-08-15] MEDS: QUEtiapine FUMARATE 100 MG TABLET PO SCH (20:42)
[2016-08-15] MEDS: traZODone HCL 50 MG TABLET (DESYREL) PO SCH (20:42)
--- NOTE | 2016-08-15 22:00 | NUR ---
Notes Patient resting quietly, no s/s of any pain, no acute distress noted. Direct observer nurse at the bedside.
--- NOTE | 2016-08-16 00:13 | NUR ---
Notes Patient resting quietly, no s/s of any pain, no acute distress noted. attempted to check vital sign but patient refused. Direct observer nurse at the bedside.
--- NOTE | 2016-08-16 02:15 | NUR ---
Notes Patient resting quietly, no s/s of any pain, no acute distress noted. Direct observer nurse at the bedside.
--- NOTE | 2016-08-16 04:10 | NUR ---
Notes Patient resting quietly, no s/s of any pain, no acute distress noted. vital sign stable. Direct observer nurse at the bedside.
[2016-08-16 05:01] VITALS: BP 99/70; PULSE 62; RESP 18; TEMP 97; O2SAT 95
--- NOTE | 2016-08-16 06:27 | NUR ---
Closing notes Patient slept most of the night, no other changes noted on patient current condition.
--- NOTE | 2016-08-16 08:00 | NUR ---
initial notes rec patient awake but periods of confusion. resp easy and unlabored. no acute distress noted. ivl on the l forearm intact. no infiltration or s/s of infection. denies any pain. bed in low position and side rails up and locked. pt with a direct observer to prevent fall. call light within reached. will continue to monitor patient.
[2016-08-16 08:09] VITALS: BP 119/70; PULSE 77; RESP 16; TEMP 97; O2SAT 96
[2016-08-16] MEDS: PARoxetine HCL 20 MG TABLET PO SCH (08:49)
[2016-08-16] MEDS: ASPIRIN 81 MG TAB.CHEW PO SCH (08:49)
[2016-08-16] MEDS: QUEtiapine FUMARATE 25 MG TABLET PO SCH (08:49)
[2016-08-16] MEDS: amLODIPine BESYLATE 5 MG TABLET PO SCH (08:50)
--- NOTE | 2016-08-16 10:00 | NUR ---
rounds seen by dr fernandez and will d/c patient. direct observer at bedside and pt sleeping soundly at this time.
[2016-08-16 10:16] VITALS: BP 119/70; PULSE 77; RESP 16; TEMP 97; O2SAT 96
--- NOTE | 2016-08-16 11:00 | NUR ---
closing notes pt was discharged .daughter Rianna will take patient patient to the [facility] pt still confused and not making sense with his comments. stable needs attended. ivl and id band was removed.
--- NOTE | 2016-08-16 15:10 | NUR ---
PHYSICAL THERAPY CO-SIGN The Physical Therapy Progress Notes documented by Environmental Sampling Technician have been reviewed. Reviewed/Co-Signed by: Meg Esteban, PT Documentation Done by: Franklyn Emery PTA I concur with the documentation of this ROTARY SLICING MACHINE OPERATOR. Plan: continue PT as per plan of care. Addendum: 08/16/16 at 1543 by Meg Esteban PT Amended: Links added.
--- NOTE | 2016-08-17 16:16 | NUR ---
Discharge Follow Up Phone Call ELECTROMECHANICAL INSPECTOR phoned patient's daughter, Rianna [phone]. Patient returned [facility]. Patient is doing okay and will follow up with his PCP at the b&c. Rianna stated she has no questions or concerns.
== END 2016-08-16 11:00 | disposition home or self-care (01) | DRG 884 ==
LOC: SED 11:09 → SMU 13:58
PROVIDERS: ADMIT Internal Medicine; ATTEND Internal Medicine
DX: F03.90 Unspecified dementia, unspecified severity, without behavioral disturbance, psychotic disturbance, mood disturbance, and anxiety (principal); F32.3 Major depressive disorder, single episode, severe with psychotic features; F29 Unspecified psychosis not due to a substance or known physiological condition; I10 Essential (primary) hypertension; R29.6 Repeated falls; E78.5 Hyperlipidemia, unspecified; W18.39XA Other fall on same level, initial encounter; Y93.89 Activity, other specified; Y92.128 Other place in nursing home as the place of occurrence of the external cause; Y99.8 Other external cause status
CPT/HCPCS: 36415; 70551; 73564; 80048; 80053; 80061; 81000-TC; 83690-TC; 84484; 85025; 85610-TC; 85730-TC; 93005; 93880; 97110-GP; 97116-GP; 97530-GP; 99285; J2060

== ENCOUNTER 2016-11-07 17:58 | Inpatient (IN) | payer OTHER, MEDICAID ==
[~2016-11-07] VITALS: Ht 177.8 cm; Wt 75.3 kg
[~2016-11-07 17:58] MED LIST changes: +RISP0.253 PO
[2016-11-07 18:00] VITALS: BP_SYST 121
--- NOTE | 2016-11-07 18:00 | NUR ---
Arrived via BLS ambulance for weakness, found on ground unable to ambulate. Patient has baseline mental status which is mild confusion. Placed in room 4 . Placed on cardiac monitor technician, blood pressure machine and pulse oximeter. To gown for exam. Side rails up. Report given to Rosalva ANDERSON.
--- NOTE | 2016-11-07 18:15 | NUR ---
Dr Carlisle at bedside examining patient
--- NOTE | 2016-11-07 18:16 | NUR ---
Pt A&O to voice and pain, per daughter pt had episode of general weakness in boarding care facility, found on ground, unable to stand under his own power, no obvious injuries, intact speech, VS WNL, respirations even and unlabored, cap refill <3.
[2016-11-07 18:32] LABS: BASOPHILS % (AUTO) 0.6 % (0.0-2.0); EOSINOPHILS # (AUTO) 0.1 K/uL (0.0-0.4); HEMATOCRIT 43.4 % (36-54); HEMOGLOBIN 14.4 g/dL (14.0-18.0); MEAN CORPUSCULAR HEMOGLOBIN 27 pg (27-31); MEAN CORPUSCULAR HGB CONC 33 % (32-36); MEAN CORPUSCULAR VOLUME 83 fL (79.0-98.0); MONOCYTES # (AUTO) 0.7 K/uL (0.0-1.0); MONOCYTES % (AUTO) 9.7 % (1.7-9.3); NEUTROPHILS # (AUTO) 4.4 K/uL (1.8-7.7); NEUTROPHILS % (AUTO) 59.7 % (40.0-70.0); PLATELET COUNT (AUTO) 193 K/uL (130-430); RED BLOOD CELL COUNT(AUTO) 5.24 MIL/uL (4.2-6.2); RED CELL DISTRIBUTION WIDTH 14.1 % (9.0-15.0); WHITE BLOOD COUNT (AUTO) 7.2 K/uL (4.8-10.8)
[2016-11-07 18:42] LABS: PROTHROMBIN TIME 10.6 SECS (9.5-12.5)
[2016-11-07 18:46] LABS: ANION GAP 4 (5-15); CALCIUM 9.2 mg/dL (8.4-11.0); CHLORIDE 107 mmol/L (98-107); CREATININE 1.05 mg/dL (0.55-1.30); GLUCOSE 128 mg/dL (70-99); SODIUM SERUM 140 mmol/L (136-145); UREA NITROGEN, BLOOD 19 mg/dL (8-21)
[2016-11-07 18:52] LABS: ALANINE AMINOTRANSFERASE 24 U/L (12-78); ALBUMIN 3.4 g/dL (3.4-4.8); ASPARTATE AMINOTRANSFERASE 24 U/L (10-37); SALICYLATE 1 mg/dL (3-30); TOTAL BILIRUBIN 0.4 mg/dL (0.0-1.0); TOTAL PROTEIN, SERUM 6.8 g/dL (6.4-8.3)
[2016-11-07 18:54] LABS: ACETAMINOPHEN 6 ug/mL (1-30); ALCOHOL, BLOOD < 3 mg/dL (<10)
[2016-11-07 19:14] LABS: BILIRUBIN,URINE NEGATIVE (NEGATIVE); BLOOD, URINE 2+ (NEGATIVE); CLARITY/URINE CLEAR (CLEAR); COLOR,URINE YELLOW (YELLOW); GLUCOSE,URINE NEGATIVE (NEGATIVE); KETONES,URINE NEGATIVE (NEGATIVE); LEUKOCYTE ESTERASE ,URINE NEGATIVE (NEGATIVE); NITRITE, URINE NEGATIVE (NEGATIVE); PROTEIN URINE NEGATIVE (NEGATIVE); UROBILINOGEN,URINE 0.2 (0.2-1.0)
--- NOTE | 2016-11-07 19:23 | NUR ---
Medication reconciliation completed with information provided by daughter. Any prior medication reconciliation on file was reviewed and corrected.
[2016-11-07 19:31] LABS: BACTERIA,URINE FEW /HPF (None Seen); WBC,URINE 0-3 /HPF (0-3)
[2016-11-07 19:32] LABS: MUCUS,URINE 1+ /LPF (None Seen)
--- NOTE | 2016-11-07 20:03 | NUR ---
Patient will be admitted to care of Dr Ashby . Admitted to Tele unit. Will go to room 132C. Belongings list completed. Summary report printed. Report will be given at bedside.
[2016-11-07 20:17] VITALS: BP_SYST 121
--- NOTE | 2016-11-07 20:17 | NUR ---
ADMISSION NOTE Received patient from ER via gurney. Patient admitted with diagnosis of aloc. Patient is awake, alert, oriented X 2. Patient oriented to hospital room, call light, toileting, pain management and safety-teach back done. Patient informed that Valeria will be his nurse and that their room number is 132c. Personal belongings checked and Belongings List documented. Call light within reach.
[2016-11-07] MEDS: risperiDONE 0.25 MG TABLET (RisperDAL) PO SCH (21:00)
[2016-11-07] MEDS: SIMVASTATIN 10 MG TABLET PO SCH (21:00)
[2016-11-07] MEDS ORDERED: PRAVASTATIN SODIUM 20 MG TABLET (PRAVACHOL) PO SCH (21:00)
[2016-11-07] MEDS: traZODone HCL 50 MG TABLET (DESYREL) PO SCH (21:00)
--- NOTE | 2016-11-07 21:00 | NUR ---
MD DR. ANGUIANO MADE ROUNDS AND WITH NEW ORDERS. WILL CARRY OUT.
[2016-11-07] MEDS ORDERED: cloNIDine HCL 0.1 MG TABLET PO PRN (21:15)
--- NOTE | 2016-11-07 21:54 | NUR ---
RN ROUNDS PATIENT RESTING QUIETLY AT THIS TIME, DUE MEDICATIONS ADMINISTERED EARLIER. ASPIRATION PRECAUTIONS MAINTAINED. REPOSITIONED FOR COMFORT. SAFETY MEASURES IN PLACE, BED ALARM ON, WILL CLOSELY MONITOR.
[2016-11-08] VITALS (7 sets, daily range): BP systolic 109–129
--- NOTE | 2016-11-08 00:30 | NUR ---
RN ROUNDS PATIENT SLEEPING, RESPIRATIONS EVEN AND UNLABORED, VITAL SIGNS STABLE. REPOSITIONED FOR COMFORT. SAFETY MEASURES IN PLACE, BED ALARM ON, CALL LIGHT WITHIN REACH, WILL CLOSELY MONITOR.
--- NOTE | 2016-11-08 02:10 | NUR ---
RN ROUNDS PATIENT CONTINUES TO SLEEP, RESPIRATIONS EVEN AND UNLABORED, REPOSITIONED FOR COMFORT. SAFETY MEASURES IN PLACE, BED ALARM ON, CALL LIGHT WITHIN REACH, WILL CLOSELY MONITOR.
--- NOTE | 2016-11-08 04:17 | NUR ---
RN ROUNDS PATIENT AWAKE, VITALS STABLE. INCONTINENCE CARE PROVIDED. REPOSITIONED FOR COMFORT. SAFETY MEASURES IN PLACE, BED ALARM ON, CALL LIGHT WITHIN REACH, WILL MONITOR.
--- NOTE | 2016-11-08 06:19 | NUR ---
RN ROUNDS PATIENT CONTINUES TO SLEEP, RESPIRATIONS EVEN AND UNLABORED, REPOSITIONED FOR COMFORT. SAFETY MEASURES MAINTAINED. PATIENT NEEDS ATTENDED TO. BILATERAL SCDS TO LOWER LEGS IN PLACE. WILL CONTINUE TO MONITOR UNTIL REPORT GIVEN TO AM NURSE.
--- NOTE | 2016-11-08 07:35 | NUR ---
AM ROUNDS: PATIENT SLEEPING DURING ROUNDS BUT WAKES UP WHEN CALLED HIS NAME. PATIENT WENT BACK TO SLEEP. REPORT GIVEN AT BEDSIDE BY NIGHT NURSE VALERIE. DAVIS.
[2016-11-08 07:45] LABS: ANION GAP 7 (5-15); CHLORIDE 106 mmol/L (98-107); CHOLESTEROL 144 mg/dL (<200); CREATININE 0.94 mg/dL (0.55-1.30); GLUCOSE 101 mg/dL (70-99); HDL CHOLESTEROL 55 mg/dL (>45); LDL CHOLESTEROL 74 mg/dL (<100); POTASSIUM 3.7 mmol/L (3.5-5.1); SODIUM SERUM 141 mmol/L (136-145); TRIGLYCERIDES 71 mg/dL (30-150); UREA NITROGEN, BLOOD 15 mg/dL (8-21)
[2016-11-08] MEDS: amLODIPine BESYLATE 5 MG TABLET PO SCH (08:40)
[2016-11-08] MEDS: risperiDONE 0.25 MG TABLET (RisperDAL) PO SCH ×2 (08:40→20:46)
[2016-11-08] MEDS: PARoxetine HCL 20 MG TABLET PO SCH (08:41)
[2016-11-08] MEDS ORDERED: traZODone HCL 50 MG TABLET (DESYREL) PO SCH (09:00)
[2016-11-08] MEDS ORDERED: amLODIPine BESYLATE 5 MG TABLET PO SCH (09:00)
--- NOTE | 2016-11-08 09:17 | NUR ---
Nutrition Update Audie Scale 18 noted. Pt admitted for ALOC. Diet: mechanical soft BMI: 23.7 kg/m2 RD to follow per nutrition care standards.
--- NOTE | 2016-11-08 09:35 | NUR ---
rounds: patient watching tv,close to nurse's station. no distress.
--- NOTE | 2016-11-08 10:32 | NUR ---
rounds: resting. stable. bed alarm on.
--- NOTE | 2016-11-08 12:27 | NUR ---
CONSULT SWALLOW SAMUEL CAMARILLO FOR ANMOL () [phone] @[phone]
--- NOTE | 2016-11-08 12:44 | NUR ---
rounds: Patient needs assistance during eating.Now patient is eating with supervision on high pedroza's position.
--- NOTE | 2016-11-08 13:20 | NUR ---
rounds; resting. bed alarm on. no distress.
--- NOTE | 2016-11-08 15:35 | NUR ---
rounds: daughter at bedside. stable.
--- NOTE | 2016-11-08 16:54 | NUR ---
care notes: patient had bm,care rendered.
--- NOTE | 2016-11-08 18:31 | NUR ---
CLOSING NOTES: PATIENT ON HIGH HOWARD'S POSITION HAVING DINNER,EATING SLOWLY. STABLE. BED ALARM ON. CALL LIGHT WITHIN REACH.
--- NOTE | 2016-11-08 19:32 | NUR ---
PM SHIFT ASSESSMENT RECEIVED PATIENT SITTING UP IN BED, AOX1. CONFUSED, REORIENTATION PROVIDED. VITAL SIGNS STABLE. IV LINE TO LEFT AC INTACT AND PATENT. SALINE LOCKED. PATIENT HAS BILATERAL SCDS IN PLACE. SAFETY MEASURES IN PLACE, BED ALARM ON. ORIENTED TO USE CALL LIGHT FOR NURSE ASSISTANCE. CALL LIGHT WITHIN REACH, WILL MONITOR.
[2016-11-08] MEDS: traZODone HCL 50 MG TABLET (DESYREL) PO SCH (20:46)
[2016-11-08] MEDS: SIMVASTATIN 10 MG TABLET PO SCH (20:46)
--- NOTE | 2016-11-08 22:06 | NUR ---
RN ROUNDS PATIENT RESTING QUIETLY AT THIS TIME, DUE MEDICATIONS ADMINISTERED EARLIER. ASPIRATION PRECAUTIONS MAINTAINED. INCONTINENCE CARE PROVIDED. REPOSITIONED AND TURNED WITH PILLOW SUPPORT. SAFETY MEASURES IN PLACE, BED ALARM ON, WILL CLOSELY MONITOR.
[2016-11-09] VITALS: BP_SYST 104
--- NOTE | 2016-11-09 00:25 | NUR ---
RN ROUNDS PATIENT SLEEPING, RESPIRATIONS EVEN AND UNLABORED, VITAL SIGNS STABLE. REPOSITIONED WITH PILLOW SUPPORT. SAFETY MEASURES IN PLACE, BED ALARM ON, WILL MONITOR.
--- NOTE | 2016-11-09 02:34 | NUR ---
RN ROUNDS PATIENT SLEEPING, RESPIRATIONS EVEN AND UNLABORED, REPOSITIONED AND TURNED. SAFETY MEASURES IN PLACE, BED ALARM ON, WILL MONITOR.
[2016-11-09 04:00] VITALS: BP_SYST 117
--- NOTE | 2016-11-09 04:12 | NUR ---
RN ROUNDS PATIENT CONTINUES TO SLEEP, RESPIRATIONS EVEN AND UNLABORED, VITAL SIGNS STABLE. REPOSITIONED AND TURNED WITH PILLOW SUPPORT. SAFETY MEASURES IN PLACE, BED ALARM ON, WILL MONITOR.
--- NOTE | 2016-11-09 06:33 | NUR ---
RN ROUNDS PATIENT CONTINUES TO SLEEP, RESPIRATIONS EVEN AND UNLABORED, INCONTINENCE CARE PROVIDED. REPOSITIONED AND TURNED WITH PILLOW SUPPORT. SAFETY MEASURES MAINTAINED, BED ALARM ON, WILL MONITOR UNTIL REPORT GIVEN TO AM NURSE.
[2016-11-09 08:00] VITALS: BP_SYST 118
--- NOTE | 2016-11-09 08:00 | NUR ---
NOTE PT SITTING UP IN BED EATING HIS BREAKFAST. NO SOB/RESP DISTRESS NOTED. IV IN LEFT AC INTACT AND PATENT AT THIS TIME. TELE UNIT ATTACHED AND TRANSMITTING. CALL LIGHT WITHIN REACH.
[2016-11-09] MEDS: amLODIPine BESYLATE 5 MG TABLET PO SCH (08:50)
[2016-11-09] MEDS: risperiDONE 0.25 MG TABLET (RisperDAL) PO SCH (08:50)
[2016-11-09] MEDS: PARoxetine HCL 20 MG TABLET PO SCH (08:50)
--- NOTE | 2016-11-09 10:00 | NUR ---
NOTE PT RESTING IN BED. NO NEEDS NOTED. PT CALM IN BED. VSS. PT NEXT TO NURSES' STATION FOR CLOSE OBSERVATION ALL SHIFT. CALL LIGHT WITHIN REACH.
--- NOTE | 2016-11-09 11:07 | NUR ---
S.T. SWALLOW EVAL COMPLETED. PT PRESENTS W/ ML ORAL DYSPHAGIA W/ ML PROLONGED MASTICATION. NO S/S OF ASPIRATION. REC: MECH SOFT FINELY CHOPPED DIET. THIN LIQUIDS OK. NRSG NOTIFIED. G8996 CI G8997 CI G8998 CI NOMS LEVEL 6
[2016-11-09 12:00] VITALS: BP_SYST 118
--- NOTE | 2016-11-09 12:00 | NUR ---
NOTE PT WORKED WITH PHYSICAL THERAPY AND TOLERATED ACTIVITY WELL. PT NOW SITTING UP IN BED WAITING FOR LUNCH TRAY. NO NEEDS NOTED. CALL LIGHT WITHIN REACH.
[2016-11-09 13:11] LABS: FOLATE (FOLIC ACID) 10.7 ng/mL (>3.0)
[2016-11-09 13:20] VITALS: BP_SYST 110
--- NOTE | 2016-11-09 13:53 | NUR ---
PHYSICAL THERAPY CO-SIGN The Physical Therapy Progress Notes documented by Hand Laminator have been reviewed. Pt CONT TO REQUIRE 2PA FOR ALL MOBILITY DUE TO WEAKNESS; CONT PER TX PLAN Reviewed/Co-Signed by: Rani Zuniga PT Documentation Done by: JAYANT RODRIGUEZ FRONT LINE SUPERVISOR Addendum: 11/09/16 at 1354 by Rani Zuniga PT Amended: Links added.
--- NOTE | 2016-11-09 14:00 | NUR ---
NOTE DR ANGUIANO WAS ON THE FLOOR AT 1230. PT WAS SEEN AND EVALUATED BY SPEECH THERAPY FOR SWALLOW EVAL. PT ABLE TO TOLERATE MECHANICAL SOFT DIET FINELY CHOPPED. DR ANGUIANO AND RN SPOKE TO PT'S DAUGHTER HALLE AT 1310, PT IS DISCHARGED HOME TODAY. QUESTIONS/CONCERNS WERE ANSWERED AT THIS TIME. MEDICATIONS FOR DISCHARGE WERE DISCUSSED WITH PT'S DAUGHTER HALLE BY DR ANGUIANO AND RN AT THIS TIME WELL. PT RESTING IN BED AT THIS TIME. NO NEEDS NOTED. CALL LIGHT WITHIN REACH.
[2016-11-09 16:00] VITALS: BP_SYST 118
--- NOTE | 2016-11-09 16:55 | NUR ---
NOTE PT WAS GIVEN HYGIENE AND BED BATH AT THIS TIME BY AUSTEN GUZMÁN AND JUSTIN DOVE FOR INCONTINENCE OF STOOL AND URINE. PT IS RESISTANT AND STRUGGLES AGAINST TURNING AND HYGIENE CARE. CALL LIGHT WITHIN REACH.
--- NOTE | 2016-11-09 17:05 | NUR ---
NOTE PT'S DAUGHTER AND SON ARRIVED AT BEDSIDE. DISCHARGE INSTRUCTIONS GIVEN, QUESTIONS/CONCERNS WERE ANSWERED AT THIS TIME. PT'S LEFT IV WAS DC'D CATH INTACT. NO SWELLING/ REDNESS/BLEEDING/DRAINAGE NOTED AT THIS TIME. FAMILY ASSISTING PT IN GETTING DRESSED AT THIS TIME.
--- NOTE | 2016-11-09 17:15 | NUR ---
NOTE PT OFF THE FLOOR VIA WHEELCHAIR WITH HIS SON AND DAUGHTER BY HIS SIDE. PT TOOK ALL HIS BELONGINGS AND PAPERWORK WITH HIM. PT STABLE. NO SOB/RESP DISTRESS OR PAIN/DISCOMFORT NOTED AT THIS TIME. PT AND HIS FAMILY CHECKED SIDE TABLE AND DRAWERS FOR BELONGINGS.
== END 2016-11-09 17:10 | disposition home or self-care (01) | DRG 312 ==
LOC: SED 17:58 → STU 19:21
PROVIDERS: ADMIT Internal Medicine; ATTEND Internal Medicine
DX: R55 Syncope and collapse (principal); G93.40 Encephalopathy, unspecified; F03.90 Unspecified dementia, unspecified severity, without behavioral disturbance, psychotic disturbance, mood disturbance, and anxiety; I10 Essential (primary) hypertension; E78.5 Hyperlipidemia, unspecified; R13.10 Dysphagia, unspecified; Z79.899 Other long term (current) drug therapy; Z87.891 Personal history of nicotine dependence; Z86.73 Personal history of transient ischemic attack (TIA), and cerebral infarction without residual deficits
CPT/HCPCS: 36415; 70450-TC; 71010; 80048; 80053; 80061; 81000-TC; 82306; 82607; 82746; 84484; 85025; 85610-TC; 85730-TC; 92610-GN; 93005; 97110-GP; 97116-GP; 97530-GP; 99285; G0480; G0481; G0482

== ENCOUNTER 2016-11-21 06:37 | Emergency (ER) | payer MEDICAID, OTHER ==
[~2016-11-21] VITALS: Ht 175.3 cm; Wt 72.6 kg
[2016-11-21 06:37] VITALS: BP_SYST 130
[2016-11-21 09:17] LABS: BILIRUBIN,URINE NEGATIVE (NEGATIVE); BLOOD, URINE 2+ (NEGATIVE); CLARITY/URINE CLEAR (CLEAR); COLOR,URINE YELLOW (YELLOW); GLUCOSE,URINE NEGATIVE (NEGATIVE); KETONES,URINE NEGATIVE (NEGATIVE); LEUKOCYTE ESTERASE ,URINE NEGATIVE (NEGATIVE); NITRITE, URINE NEGATIVE (NEGATIVE); PROTEIN URINE NEGATIVE (NEGATIVE); UROBILINOGEN,URINE 0.2 (0.2-1.0)
[2016-11-21 09:27] LABS: BACTERIA,URINE FEW /HPF (None Seen); RBC,URINE 0-3 /HPF (0-3); WBC,URINE 0-3 /HPF (0-3)
[2016-11-21 10:45] VITALS: BP_SYST 124
== END 2016-11-21 10:45 | disposition home or self-care (01) ==
LOC: SED 06:37
DX: M79.604 Pain in right leg (principal); I10 Essential (primary) hypertension; J44.9 Chronic obstructive pulmonary disease, unspecified; F03.90 Unspecified dementia, unspecified severity, without behavioral disturbance, psychotic disturbance, mood disturbance, and anxiety; W18.39XA Other fall on same level, initial encounter; Y93.89 Activity, other specified; Y92.89 Other specified places as the place of occurrence of the external cause; Y99.8 Other external cause status
CPT/HCPCS: 72170-TC; 73552; 73564; 73590-TC; 81000-TC; 99285

== ENCOUNTER 2019-01-05 19:06 | Inpatient (IN) | payer OTHER ==
[~2019-01-05] VITALS: Ht 167.6 cm; Wt 55.8 kg
[~2019-01-05 19:06] MED LIST changes: -TRAZ-123 PO; +TRAZ-218 PO
[2019-01-05 19:17] VITALS: BP_SYST 127
--- NOTE | 2019-01-05 19:51 | NUR ---
Pt placed to ER bed 07, report given to JUSTIN Davila. Pt BIB pt.'s brother and son from home r/t cough, runny nose, fever and lethargy x 2 days. Pt with hx of dementia, AAO to self, fidgeting noted, unable to stand or ambulate. Placed to ER bed with SR up x 2, fall precautions in effect. Family members express concern because he has had a hx of pneumonia. Pt has a home health nurse visit him at home and she ordered a CXR and Pneumonia has been R/O.
--- NOTE | 2019-01-05 19:55 | NUR ---
Patient brouth in complaining of acute onset of cold symptoms x 2 days worsening yesterday with cough and tactile fever. Family reports foul smelling urine and urinary frequency. No other complaints/injuries per patient or as noted. Will continue to monitor.
--- NOTE | 2019-01-05 20:42 | NUR ---
ER Dr. Lowe at bedside examining patient.
[2019-01-05] MEDS ORDERED: NACL 0.9% 1,000 ML IV ONE (20:45)
--- NOTE | 2019-01-05 21:02 | NUR ---
ATTEMPTED IN AND OUT CATHETER. UNABLE TO COLLECT URINE AT THIS TIME. URINE BAG PLACED. PATIENT TOLERATED WELL.
[2019-01-05 21:23] LABS: BASOPHILS % (AUTO) 0.1 % (0.0-2.0); HEMATOCRIT 44.5 % (36-54); HEMOGLOBIN 15.1 g/dL (14.0-18.0); LYMPHOCYTES # (AUTO) 0.5 K/uL (1.0-5.5); MEAN CORPUSCULAR HEMOGLOBIN 29 pg (27-31); MEAN CORPUSCULAR HGB CONC 34 % (32-36); MEAN CORPUSCULAR VOLUME 86 fL (79.0-98.0); MONOCYTES % (AUTO) 9.5 % (1.7-9.3); NEUTROPHILS # (AUTO) 9.2 K/uL (1.8-7.7); NEUTROPHILS % (AUTO) 85.4 % (40.0-70.0); RED BLOOD CELL COUNT(AUTO) 5.19 MIL/uL (4.2-6.2); RED CELL DISTRIBUTION WIDTH 14.5 % (9.0-15.0); WHITE BLOOD COUNT (AUTO) 10.8 K/uL (4.8-10.8)
[2019-01-05 21:29] LABS: ANION GAP 3 (5-15); CALCIUM 8.6 mg/dL (8.4-11.0); CHLORIDE 102 mmol/L (98-107); CREATININE 1.14 mg/dL (0.55-1.30); GLUCOSE 150 mg/dL (70-99); POTASSIUM 3.6 mmol/L (3.5-5.1); SODIUM SERUM 133 mmol/L (136-145); UREA NITROGEN, BLOOD 19 mg/dL (8-21)
[2019-01-05 21:33] LABS: ALANINE AMINOTRANSFERASE 29 U/L (12-78); ALBUMIN 2.8 g/dL (3.4-4.8); ASPARTATE AMINOTRANSFERASE 22 U/L (10-37); TOTAL BILIRUBIN 0.9 mg/dL (0.0-1.0)
[2019-01-05 21:37] LABS: PLATELET COUNT (AUTO) 260 K/uL (130-430)
--- NOTE | 2019-01-05 21:45 | NUR ---
Medication reconciliation completed with information provided by PATIENT'S MEDICATION BOTTLES. Any prior medication reconciliation on file was reviewed and corrected.
--- NOTE | 2019-01-05 22:30 | NUR ---
Urine specimen collected and analyzed in LAB. Results PENDING
[2019-01-05 22:36] LABS: BILIRUBIN,URINE NEGATIVE (NEGATIVE); BLOOD, URINE 3+ (NEGATIVE); CLARITY/URINE CLOUDY (CLEAR); COLOR,URINE RED (YELLOW); GLUCOSE,URINE NEGATIVE (NEGATIVE); KETONES,URINE TRACE (NEGATIVE); LEUKOCYTE ESTERASE ,URINE 1+ (NEGATIVE); NITRITE, URINE POSITIVE (NEGATIVE); PROTEIN URINE 2+ (NEGATIVE)
[2019-01-05 22:54] LABS: RBC,URINE >100 /HPF (0-3)
[2019-01-05 22:55] LABS: BACTERIA,URINE FEW /HPF (None Seen); MUCUS,URINE None Seen /LPF (None Seen)
[2019-01-05] MEDS ORDERED: cefTRIAXone 1 GM IVPB PREMIX 50 ML IV ONE (23:00)
--- NOTE | 2019-01-05 23:03 | NUR ---
ER at bedside re examining patient.
--- NOTE | 2019-01-05 23:30 | NUR ---
Patient will be admitted to care of DR ANGUIANO. Admitted to TELEMETRY unit. Will go to room 132C. Summary report printed. Report will be given at bedside.
--- NOTE | 2019-01-05 23:33 | NUR ---
POW DAUGHTER, HALLE, STATES PT IS FULL CODE
[2019-01-05] MEDS ORDERED: ACETAMINOPHEN 325 MG TABLET PO PRN (23:45)
--- NOTE | 2019-01-05 23:50 | NUR ---
LATE ENTRY : ADMISSION: The patient, FLORENTIN ALBERT, 73 y/o, M admitted by JACK ANGUIANO MD, WITH THE DIAGNOSIS OF ALOC , TO ROOM 132 C , FAMILY AT BEDSIDE .
--- NOTE | 2019-01-05 23:55 | NUR ---
ROUNDS PATIENT IN BED, NOT IN DISTRESS, VITALS STABLE, DENIES ANY PAIN AND DISCOMFORT AT THIS TIME. ADMISSION ASSESSMENT DONE AND DOCUMENTED. SEE FLOWSHEET. ORIENTED TO THE ROOM, PHONE AND CALL LIGHT . FAMILY AT THE BEDSIDE. NEEDS ATTENDED TO. CALL LIGHT PLACED WITHIN REACH.
[2019-01-06] MEDS ORDERED: DEXTROSE 50% JECT 50 ML DISP.SYRIN IVP PRN
[2019-01-06] MEDS ORDERED: LEVOFLOXACIN 500 MG/D5W 100 ML IV SCH
--- NOTE | 2019-01-06 00:06 | NUR ---
CONSULTATION PAGED REASON FOR CONSULTATION:ALOC WAS CONSULT CALLED?Y PERSON WHO WAS NOTIFIED:KIANA CONSULTING PHYSICIAN:KANDI NAVARRO DAIRY HAND SPECIALTY:NEURO DAIRY HAND PHONE NUMBER:[phone] ORDERING PHYSICIAN:JACK JO
[2019-01-06 00:08] VITALS: BP_SYST 106
[2019-01-06] MEDS: LR 1,000 ML IV SCH ×3 (00:55→21:57)
[2019-01-06] MEDS ORDERED: LEVOFLOXACIN 250 MG/D5W 0 ML IV ONE (01:08)
[2019-01-06] MEDS ORDERED: LEVOFLOXACIN 500 MG/D5W 100 ML IV ONE (01:25)
--- NOTE | 2019-01-06 02:13 | NUR ---
ROUNDS PATIENT ASLEEP, RESPIRATIONS EVEN AND UNLABORED, NO SOB NOR PAIN AND DISCOMFORT NOTED. WILL CONTINUE TO MONITOR.
--- NOTE | 2019-01-06 04:13 | NUR ---
PATIENT RESTING: Patient resting quietly. No acute distress noted. Vital signs within normal range.
--- NOTE | 2019-01-06 06:50 | NUR ---
CLOSING NOTES PATIENT AWAKE, VITALS STABLE, NO PAIN AND DISCOMFORT AT THIS TIME. ALL NEEDS ATTENDED TO. SAFETY MEASURES MAINTAINED. CALL LIGHT PLACED WITHIN REACH.
[2019-01-06 07:06] LABS: BASOPHILS % (AUTO) 0.2 % (0.0-2.0); EOSINOPHILS % (AUTO) 0.1 % (0.0-4.0); HEMATOCRIT 45.4 % (36-54); HEMOGLOBIN 14.9 g/dL (14.0-18.0); LYMPHOCYTES # (AUTO) 1.1 K/uL (1.0-5.5); LYMPHOCYTES % (AUTO) 9.3 % (20.5-51.5); MEAN CORPUSCULAR HEMOGLOBIN 29 pg (27-31); MEAN CORPUSCULAR HGB CONC 33 % (32-36); MEAN CORPUSCULAR VOLUME 87 fL (79.0-98.0); MONOCYTES # (AUTO) 0.9 K/uL (0.0-1.0); MONOCYTES % (AUTO) 7.6 % (1.7-9.3); NEUTROPHILS # (AUTO) 9.6 K/uL (1.8-7.7); NEUTROPHILS % (AUTO) 82.8 % (40.0-70.0); PLATELET COUNT (AUTO) 110 K/uL (130-430); RED BLOOD CELL COUNT(AUTO) 5.22 MIL/uL (4.2-6.2); RED CELL DISTRIBUTION WIDTH 14.6 % (9.0-15.0); WHITE BLOOD COUNT (AUTO) 11.6 K/uL (4.8-10.8)
--- NOTE | 2019-01-06 07:25 | NUR ---
Opening note Patient resting in bed at this time, awake. No complaints of pain. A/Ox1. Patient NPO at this time awaiting abdominal ultrasound. Iv patent, intact, and infusing fluids as ordered. No adverse side effects noted. SCD in place. On safety and aspiration precautions, HOB kept elevated, bed alarm on, 3 side rails up. Call light within reach. Will continue to monitor.
[2019-01-06 07:28] LABS: ALANINE AMINOTRANSFERASE 29 U/L (12-78); ALBUMIN 2.8 g/dL (3.4-4.8); ASPARTATE AMINOTRANSFERASE 23 U/L (10-37); CALCIUM 8.8 mg/dL (8.4-11.0); CHLORIDE 106 mmol/L (98-107); CHOLESTEROL 116 mg/dL (<200); CREATININE 0.82 mg/dL (0.55-1.30); FREE T4 (FREE THYROXINE) 0.5 ng/dL (0.6-1.6); GLUCOSE 105 mg/dL (70-99); HDL CHOLESTEROL 61 mg/dL (>45); LDL CHOLESTEROL 46 mg/dL (<100); SODIUM SERUM 138 mmol/L (136-145); TOTAL BILIRUBIN 0.8 mg/dL (0.0-1.0); TRIGLYCERIDES 30 mg/dL (30-150); UREA NITROGEN, BLOOD 14 mg/dL (8-21)
[2019-01-06 07:33] LABS: ANION GAP < 3 (5-15)
[2019-01-06 08:18] VITALS: BP_SYST 122
[2019-01-06] MEDS ORDERED: PRAVASTATIN SODIUM 20 MG TABLET (PRAVACHOL) PO SCH (09:00)
--- NOTE | 2019-01-06 09:30 | NUR ---
Rounds Patient noted with good urine output. Skin care provided. Patient NPO awaiting ultrasound. Iv patent, intact, and infusing as ordered. No adverse side effects noted.
[2019-01-06] MEDS: TAMSULOSIN HCL 0.4 MG CAP PO SCH ×2 (10:47→20:36)
[2019-01-06] MEDS: cefTRIAXone 1 GM in D5W 50 ML IV SCH (11:06)
[2019-01-06 11:19] VITALS: BP_SYST 120
--- NOTE | 2019-01-06 12:15 | NUR ---
Blood sugar Patient sitting up in bed, lunch at bedside, Blood sugar 66, patient was NPO this morning prior to ultrasound. rechecked blood sugar 85, patient sitting up in bed eating lunch, noted with good appetite.
--- NOTE | 2019-01-06 14:21 | NUR ---
Rounds Patient resting in bed in bed, A/Ox1, no complaints of pain. IV patent, intact and infusing as ordered. No adverse side effects noted.
[2019-01-06 15:08] VITALS: BP_SYST 124
--- NOTE | 2019-01-06 15:52 | NUR ---
Bladder scan Patient noted with Bowel movement and urine, good skin care provided, linens changed. Bladder scan done, 0 ml residual urine.
[2019-01-06] MEDS ORDERED: QUEtiapine FUMARATE 25 MG TABLET PO SCH (18:00)
--- NOTE | 2019-01-06 18:00 | NUR ---
Closing note Patient resting in bed at this time, awake. No complaints of pain. A/Ox1. Iv patent, intact, and infusing fluids as ordered. No adverse side effects noted. SCD in place. On safety and aspiration precautions, HOB kept elevated, bed alarm on, 3 side rails up. Call light within reach. Patient in stable condition. All needs met.
--- NOTE | 2019-01-06 19:35 | NUR ---
ROUNDS PATIENT RESTING COMFORTABLY IN BED, VITALS STABLE, NO SIGNS OF ANY PAIN AND DISCOMFORT NOTED. ASSESSMENT DONE AND DOCUMENTED. SEE FLOWSHEET. NEEDS ATTENDED TO. SAFETY AND FALL PRECAUTION MEASURES IN PLACED. BED IN LOW AND LOCKED POSITION. BED ALARM ON. CALL LIGHT PLACED WITHIN REACH.
[2019-01-06] MEDS: ATORVASTATIN 10 MG TABLET PO SCH (20:36)
--- NOTE | 2019-01-06 21:13 | NUR ---
MEDICATIONS DUE MEDICATIONS GIVEN SCHEDULED, TOLERATED WELL. WILL CONTINUE TO MONITOR.
--- NOTE | 2019-01-07 00:13 | NUR ---
PATIENT RESTING: Patient resting quietly. No acute distress noted. Vital signs within normal range.
[2019-01-07 00:58] VITALS: BP_SYST 108
--- NOTE | 2019-01-07 02:14 | NUR ---
ROUNDS PATIENT ASLEEP, RESPIRATIONS EVEN AND UNLABORED, NO SIGNS OF ANY PAIN AND DISCOMFORT NOTED. WILL CONTINUE TO MONITOR.
--- NOTE | 2019-01-07 02:16 | NUR ---
ROUNDS PATIENT ASLEEP, RESPIRATIONS EVEN AND UNLABORED, NO SIGNS OF ANY PAIN AND DISCOMFORT NOTED. WILL CONTINUE TO MONITOR.
--- NOTE | 2019-01-07 04:16 | NUR ---
BLADDER SCAN BLADDER SCAN DONE ORDERED, VOLUME 0 ML. PATIENT INCONTINENT, WILL CONTINUE TO MONITOR.
[2019-01-07] MEDS: LEVOFLOXACIN 250 MG/D5W 50 ML IV SCH (04:25)
[2019-01-07 06:29] LABS: BASOPHILS % (AUTO) 0.3 % (0.0-2.0); EOSINOPHILS # (AUTO) 0.1 K/uL (0.0-0.4); EOSINOPHILS % (AUTO) 1.7 % (0.0-4.0); HEMATOCRIT 37.9 % (36-54); HEMOGLOBIN 12.7 g/dL (14.0-18.0); LYMPHOCYTES # (AUTO) 1.3 K/uL (1.0-5.5); LYMPHOCYTES % (AUTO) 18.1 % (20.5-51.5); MEAN CORPUSCULAR HEMOGLOBIN 29 pg (27-31); MEAN CORPUSCULAR HGB CONC 34 % (32-36); MEAN CORPUSCULAR VOLUME 86 fL (79.0-98.0); MONOCYTES # (AUTO) 0.6 K/uL (0.0-1.0); NEUTROPHILS % (AUTO) 70.9 % (40.0-70.0); PLATELET COUNT (AUTO) 113 K/uL (130-430); RED BLOOD CELL COUNT(AUTO) 4.44 MIL/uL (4.2-6.2); RED CELL DISTRIBUTION WIDTH 14.3 % (9.0-15.0); WHITE BLOOD COUNT (AUTO) 7.1 K/uL (4.8-10.8)
[2019-01-07 06:46] LABS: CALCIUM 8.6 mg/dL (8.4-11.0); CHLORIDE 107 mmol/L (98-107); GLUCOSE 104 mg/dL (70-99); POTASSIUM 3.6 mmol/L (3.5-5.1); SODIUM SERUM 138 mmol/L (136-145); UREA NITROGEN, BLOOD 17 mg/dL (8-21)
--- NOTE | 2019-01-07 06:50 | NUR ---
CLOSING NOTES PATIENT RESTING COMFORTABLY IN BED, VITALS STABLE, NO PAIN NOTED AT THIS TIME. ALL NEEDS ATTENDED TO. CALL LIGHT PLACED WITHIN REACH.
--- NOTE | 2019-01-07 07:08 | NUR ---
Nutrition Update Audie Scale 15 noted. Pt admitted for ALOC Diet: Regular BMI: 19.9 kg/m2 RD to follow per nutrition care standards.
--- NOTE | 2019-01-07 07:12 | NUR ---
OPENING NOTE: MORNING REPORT WAS TAKEN FROM RADIAL DRILL PRESS OPERATOR NURSE AT BEDSIDE. PATIENT ASLEEP BUT WOKEN. PATIENT IS ALERT BUT NOT ORIENTED. PATIENT NOT COMPLAINING OF PAIN OR SOB. PATIENT HAS SCD'S ON. BED ALARM IS ON. CALL LIGHT IS IN REACH. SIDE RAILS ARE UP. BED IN LOWEST POSITION. WILL CONTINUE TO MONITOR.
[2019-01-07 07:24] LABS: ANION GAP < 3 (5-15)
[2019-01-07 07:37] VITALS: BP_SYST 100
[2019-01-07] MEDS: LR 1,000 ML IV SCH ×2 (08:43→16:55)
[2019-01-07] MEDS: TAMSULOSIN HCL 0.4 MG CAP PO SCH ×2 (08:46→21:32)
--- NOTE | 2019-01-07 08:47 | NUR ---
GAVE PATIENT MORNING MEDICATION. PATIENT SWALLOWED WITH OUT DIFFICULTIES. FLUIDS ARE INFUSING. IV INTACT. WILL CONTINUE TO MONITOR.
--- NOTE | 2019-01-07 09:04 | NUR ---
PHYSICAL THERAPY AT BEDSIDE TRYING TO WORK WITH PATIENT. PT UNABLE TO BECAUSE HE SAID PATIENT IS MAX ASSIST.
[2019-01-07] MEDS ORDERED: HALOPERIDOL LACTATE 5 MG/ML VIAL IM SCH ×2 (09:40→22:00)
[2019-01-07] MEDS ORDERED: QUEtiapine FUMARATE 25 MG TABLET PO SCH ×2 (09:40→22:00)
[2019-01-07] MEDS: cefTRIAXone 1 GM in D5W 50 ML IV SCH (10:10)
--- NOTE | 2019-01-07 11:34 | NUR ---
PATIENT RESTING IN BED WATCHING TV. PATIENT TRYING TO TAKE BLANKETS OFF. ORIENTED PATIENT. PATIENT AWAKE BUT NOT ORIENTED. FLUIDS ARE INFUSING. CALL LIGHT IS IN REACH. WILL CONTINUE TO MONITOR.
--- NOTE | 2019-01-07 12:07 | NUR ---
PATIENT VOIDED. PATIENT CLEANED AND REPOSITIONED FOR COMFORT.
--- NOTE | 2019-01-07 12:39 | NUR ---
PATIENT'S DAUGHTER HALLE AT BEDSIDE TALKING TO PATIENT. PATIENT HAS NO SIGNS OF DISTRESS. WILL CONTINUE TO MONITOR.
[2019-01-07 13:02] VITALS: BP_SYST 111
--- NOTE | 2019-01-07 14:20 | NUR ---
PATIENT HAD BOWEL MOVEMENT. PATIENT WAS CLEANED UP AND REPOSITIONED FOR COMFORT. FLUIDS ARE INFUSING. WILL CONTINUE TO MONITOR.
--- NOTE | 2019-01-07 15:12 | NUR ---
DAUGHTER AT BEDSIDE TALKING TO PATIENT.
--- NOTE | 2019-01-07 16:27 | NUR ---
BLADDER SCAN WAS DONE ORDERED QSHIFT. MOST PATIENT HAD WAS 142ML URINE ON SCAN.
--- NOTE | 2019-01-07 16:35 | NUR ---
DR ANGUIANO AT BEDSIDE EXAMINING PATIENT AND TALKING TO DAUGHTER.
[2019-01-07 16:39] VITALS: BP_SYST 129
[2019-01-07] MEDS ORDERED: IPRATROPIUM/ALBUTEROL SULFATE 3 ML AMPUL.NEB (DUONEB) INH PRN (16:45)
[2019-01-07] MEDS ORDERED: IPRATROPIUM/ALBUTEROL SULFATE 3 ML AMPUL.NEB (DUONEB) ONE (16:56)
[2019-01-07] MEDS ORDERED: LORazepam 2 MG/ML VIAL IVP ONE (17:15)
--- NOTE | 2019-01-07 17:20 | NUR ---
PATIENT HAD EPISODE OF WHOLE BODY SHAKING PER DAUGHTER. PATIENT AWAKE AND ANSWERS TO VOICE. DR ANGUIANO AWARE. WILL CONTINUE TO MONITOR.
--- NOTE | 2019-01-07 18:06 | NUR ---
CLOSING NOTE: PATIENT BACK FROM CT IN STABLE CONDITION. PATIENT HAS NO SIGNS OF DISTRESS. PATIENT HAS FLUIDS INFUSING. PATIENT ON ROOM AIR. CALL LIGHT IS IN REACH. CALLED DAUGHTER TO LET HER KNOW PATIENT PATIENT BACK BECAUSE SHE WANTS TO FEED HIM DINNER. BED IN LOWEST POSITION WITH SIDE RAILS UP. WILL CONTINUE TO MONITOR.
[2019-01-07 18:08] VITALS: BP_SYST 129
--- NOTE | 2019-01-07 19:05 | NUR ---
OPENING NOTE RECEIVED ENDORSEMENT REPORT FROM DAY NURSE JONA AT BEDSIDE. PT RESTING IN BED, IN NO ACUTE DISTRESS. NO S/S OF PAIN OR DISCOMFORT. PT'S DTR AT BEDSIDE. BREATHING IS UNLABORED TO ROOM AIR. IV CLEAN, DRY AND INTACT. IVF INFUSING WELL. EDUCATED PT AND DTR ON HOW TO USE CALL LIGHT AND ROOM PHONE. PT UNABLE TO VERBALIZE UNDERSTANDING. SAFETY PRECAUTIONS ARE IN PLACE: BED IS LOCKED IN LOWEST POSITION, CALL LIGHT IS WITH PT, SIDE RAILS UP X3, BEDSIDE TABLE WITHIN REACH, BED ALARM ON. WILL CONTINUE POC AND MONITOR PT.
[2019-01-07] MEDS: IPRATROPIUM/ALBUTEROL SULFATE 3 ML AMPUL.NEB (DUONEB) INH SCH ×2 (19:59→23:21)
--- NOTE | 2019-01-07 20:05 | NUR ---
RN ROUNDS PT RESTING IN BED, IN NO ACUTE DISTRESS. NO S/S OF PAIN OR DISCOMFORT. BREATHING IS UNLABORED TO ROOM AIR. IVF INFUSING WELL. VITAL SIGNS WNL. NO NEEDS AT THIS TIME. SAFETY PRECAUTIONS ARE IN PLACE. WILL CONTINUE POC AND MONITOR PT.
[2019-01-07 20:10] VITALS: BP_SYST 150
--- NOTE | 2019-01-07 20:53 | NUR ---
PAGED PAGING DR. ANGUIANO FOR ORDERS, SPOKE WITH LITZY
--- NOTE | 2019-01-07 21:01 | NUR ---
PAGED PAGING KANDI BHATT FOR ORDERS, SPOKE WITH EDITA
--- NOTE | 2019-01-07 21:10 | NUR ---
DR. JOSE VILLAVICENCIO NEW ORDER SEROQUEL 25 MG PO X ONE NOW SEROQUEL 25 MG PO HS PRN AGITATION HALDOL 2 MG IM XONE NOW
[2019-01-07] MEDS ORDERED: QUEtiapine FUMARATE 25 MG TABLET PO PRN (21:30)
[2019-01-07] MEDS: ATORVASTATIN 10 MG TABLET PO SCH (21:33)
--- NOTE | 2019-01-07 21:45 | NUR ---
RN ROUNDS PT RESTING IN BED, IN NO ACUTE DISTRESS. NO S/S OF PAIN OR DISCOMFORT. BREATHING IS UNLABORED TO ROOM AIR. SCHEDULED MEDICATIONS ADMINISTERED ORDERED. PT TOLERATED WELL. NO OTHER NEEDS AT THIS TIME. SAFETY PRECAUTIONS ARE IN PLACE. WILL CONTINUE POC AND MONITOR PT.
--- NOTE | 2019-01-07 22:25 | NUR ---
RN ROUNDS PT RESTING IN BED, IN NO ACUTE DISTRESS. NO S/S OF PAIN OR DISCOMFORT. BREATHING IS UNLABORED TO ROOM AIR. NO NEEDS AT THIS TIME. SAFETY PRECAUTIONS ARE IN PLACE. WILL CONTINUE POC AND MONITOR PT.
[2019-01-07 23:06] LABS: PROSTATE SPECIFIC AG TOTAL 0.7 ng/mL (0.0-4.0)
[2019-01-08] MEDS: LEVOFLOXACIN 250 MG/D5W 50 ML IV SCH (00:34)
[2019-01-08 01:06] LABS: FREE PSA 0.21 ng/mL
[2019-01-08 01:53] VITALS: BP_SYST 141
--- NOTE | 2019-01-08 02:10 | NUR ---
RN ROUNDS PT RESTING IN BED, IN NO ACUTE DISTRESS. NO S/S OF PAIN OR DISCOMFORT. BREATHING IS UNLABORED TO ROOM AIR.NO NEEDS AT THIS TIME. SAFETY PRECAUTIONS ARE IN PLACE. WILL CONTINUE POC AND MONITOR PT.
[2019-01-08] MEDS: IPRATROPIUM/ALBUTEROL SULFATE 3 ML AMPUL.NEB (DUONEB) INH SCH ×6 (03:26→23:39)
--- NOTE | 2019-01-08 05:30 | NUR ---
BLADDER SCAN WAS DONE ORDERED QSHIFT. PATIENT HAD 0ML URINE ON SCAN.
--- NOTE | 2019-01-08 06:05 | NUR ---
BS 95
--- NOTE | 2019-01-08 06:34 | NUR ---
CLOSING NOTE PT RESTING IN BED, AOX1, IN NO ACUTE DISTRESS. NO S/S PAIN OR DISCOMFORT. BREATHING IS UNLABORED. ALL SCHEDULED MEDICATIONS ADMINISTERED ORDERED. ALL NEEDS MET THROUGHOUT SHIFT. SAFETY PRECAUTIONS ARE IN PLACE. WILL CONTINUE TO MONITOR UNTIL PT CARE IS ENDORSED TO DAY SHIFT NURSE.
[2019-01-08 08:00] VITALS: BP_SYST 125
--- NOTE | 2019-01-08 08:00 | NUR ---
Note Pt was seated up in bed and fed his breakfast by FOXING PAINTER. No SOB/resp distress or pain/discomfort noted at this time. IV in right AC intact and patent infusing IVF's well at this time. No needs noted at this time. Call light within reach.
[2019-01-08] MEDS: TAMSULOSIN HCL 0.4 MG CAP PO SCH ×2 (08:36→20:15)
[2019-01-08] MEDS: cefTRIAXone 1 GM in D5W 50 ML IV SCH (11:02)
[2019-01-08] MEDS: LR 1,000 ML IV SCH (11:12)
--- NOTE | 2019-01-08 11:51 | NUR ---
CONSULTATION PAGED/CALLED Reason for Consultation: COPD Person Who was Notified: SPOKE WITH DARRYL FROM OFFICE Consulting Physician: Outsole Beveler Specialty: PULMO Ordering Physician:
--- NOTE | 2019-01-08 12:00 | NUR ---
Note Pt was seen and assessed by Dr Ashby at this time at bedside. PT also was with pt early this morning working on movement and activity. Call light within reach. No needs noted at this time.
[2019-01-08 12:46] VITALS: BP_SYST 117
--- NOTE | 2019-01-08 14:18 | NUR ---
Dischharge Planning: DCP faxed pt referral to [facility] ([phone] p [phone]) DCP to follow up.
[2019-01-08 16:19] VITALS: BP_SYST 116
--- NOTE | 2019-01-08 17:20 | NUR ---
Note Dr Barroso at pt's bedside doing assessment and orders written and carried out. Pt resting at this time. Hygiene care was given and pt able to turn side to side independently. Call light within reach.
--- NOTE | 2019-01-08 18:05 | NUR ---
Note Bladder scan done on pt at 1700, only 10cc noted at this time. Pt voids alot and was frequently changed for incontinence. Pt was checked on q1' and PRN all shift for needs and care. Pt sitting up in bed at this time being fed his dinner by ACCOUNT DIRECTOR. No needs were noted at this time. Tele unit attached and intact all shift. IV in right AC intact and patent infusing IVF's well. Call light within reach.
[2019-01-08 19:10] VITALS: BP_SYST 116
--- NOTE | 2019-01-08 19:10 | NUR ---
OPENING NOTE RECEIVED ENDORSEMENT REPORT FROM DAY NURSE PETTY AT BEDSIDE. PT RESTING IN BED, IN NO ACUTE DISTRESS. NO S/S OF PAIN OR DISCOMFORT. BREATHING IS UNLABORED TO ROOM AIR. IV CLEAN, DRY AND INTACT. IVF INFUSING WELL. EDUCATED PT ON HOW TO USE CALL LIGHT AND ROOM PHONE. PT VERBALIZED UNDERSTANDING. SAFETY PRECAUTIONS ARE IN PLACE: BED IS LOCKED IN LOWEST POSITION, CALL LIGHT IS WITH PT, SIDE RAILS UP X3, BEDSIDE TABLE WITHIN REACH, BED ALARM ON. WILL CONTINUE POC AND MONITOR PT.
--- NOTE | 2019-01-08 20:10 | NUR ---
RN ROUNDS PT RESTING IN BED, IN NO ACUTE DISTRESS. NO S/S OF PAIN OR DISCOMFORT. PT BREATHING IS UNLABORED TO ROOM AIR. IV CLEAN, DRY AND INTACT. IVF INFUSING WELL. VITAL SIGNS WNL. NO OTHER NEEDS AT THIS TIME. SAFETY PRECAUTIONS ARE IN PLACE. WILL CONTINUE POC AND MONITOR PT.
[2019-01-08] MEDS: ATORVASTATIN 10 MG TABLET PO SCH (20:15)
--- NOTE | 2019-01-08 20:20 | NUR ---
RN ROUNDS PT RESTING IN BED, IN NO ACUTE DISTRESS. NO S/S OF PAIN OR DISCOMFORT. BREATHING IS UNLABORED TO ROOM AIR. IVF INFUSING WELL. VITAL SIGNS WNL. SCHEDULED MEDICATIONS ADMINISTERED ORDERED. PT TOLERATED WELL. BS 129. NO OTHER NEEDS AT THIS TIME. SAFETY PRECAUTIONS ARE IN PLACE. WILL CONTINUE POC AND MONITOR PT.
[2019-01-08] MEDS ORDERED: QUEtiapine FUMARATE 25 MG TABLET PO SCH (21:00)
[2019-01-09 01:13] VITALS: BP_SYST 127
[2019-01-09] MEDS: IPRATROPIUM/ALBUTEROL SULFATE 3 ML AMPUL.NEB (DUONEB) INH SCH ×6 (02:19→23:16)
[2019-01-09] MEDS: LR 1,000 ML IV SCH ×3 (02:28→23:25)
[2019-01-09] MEDS: LEVOFLOXACIN 250 MG/D5W 50 ML IV SCH ×2 (02:28→23:20)
--- NOTE | 2019-01-09 04:35 | NUR ---
RN ROUNDS PT RESTING IN BED, IN NO ACUTE DISTRESS. NO S/S OF PAIN OR DISCOMFORT. BREATHING IS UNLABORED. NO NEEDS AT THIS TIME. SAFETY PRECAUTIONS ARE IN PLACE. WILL CONTINUE POC AND MONITOR PT.
--- NOTE | 2019-01-09 06:31 | NUR ---
BS 98
[2019-01-09 06:48] LABS: BASOPHILS % (AUTO) 0.3 % (0.0-2.0); EOSINOPHILS # (AUTO) 0.1 K/uL (0.0-0.4); EOSINOPHILS % (AUTO) 1.6 % (0.0-4.0); HEMATOCRIT 40.6 % (36-54); HEMOGLOBIN 13.7 g/dL (14.0-18.0); LYMPHOCYTES # (AUTO) 1.5 K/uL (1.0-5.5); LYMPHOCYTES % (AUTO) 19.1 % (20.5-51.5); MEAN CORPUSCULAR HEMOGLOBIN 29 pg (27-31); MEAN CORPUSCULAR HGB CONC 34 % (32-36); MEAN CORPUSCULAR VOLUME 87 fL (79.0-98.0); MONOCYTES # (AUTO) 0.8 K/uL (0.0-1.0); NEUTROPHILS # (AUTO) 5.6 K/uL (1.8-7.7); PLATELET COUNT (AUTO) 153 K/uL (130-430); RED CELL DISTRIBUTION WIDTH 14.2 % (9.0-15.0); WHITE BLOOD COUNT (AUTO) 8.1 K/uL (4.8-10.8)
[2019-01-09 07:04] LABS: ALANINE AMINOTRANSFERASE 26 U/L (12-78); ALBUMIN 2.4 g/dL (3.4-4.8); ASPARTATE AMINOTRANSFERASE 23 U/L (10-37); CALCIUM 8.4 mg/dL (8.4-11.0); CHLORIDE 107 mmol/L (98-107); CREATININE 0.89 mg/dL (0.55-1.30); GLUCOSE 102 mg/dL (70-99); POTASSIUM 3.7 mmol/L (3.5-5.1); SODIUM SERUM 144 mmol/L (136-145); TOTAL BILIRUBIN 0.5 mg/dL (0.0-1.0); UREA NITROGEN, BLOOD 14 mg/dL (8-21)
[2019-01-09 07:17] LABS: ANION GAP 10 (5-15)
--- NOTE | 2019-01-09 07:50 | NUR ---
opening note patient is resting in bed, assessment completed, educated director of health education light system and plan of care, patient verbalized understanding, IV fluids running, patient just had breathing treatment, no signs of distress, fall/safety precautions in place.
[2019-01-09 08:00] VITALS: BP_SYST 123
[2019-01-09] MEDS: TAMSULOSIN HCL 0.4 MG CAP PO SCH ×2 (08:54→22:11)
[2019-01-09] MEDS: cefTRIAXone 1 GM in D5W 50 ML IV SCH (09:30)
--- NOTE | 2019-01-09 09:32 | NUR ---
rocephin patient resting in bed, educated on medication use and side effects, IV site was changed to left forearm 22G, no other needs at this time, fall/safety precautions in place.
[2019-01-09 11:00] VITALS: BP_SYST 135
--- NOTE | 2019-01-09 11:47 | NUR ---
accuchek patient is getting a breathing treatment, accuchek done, no other needs at this time, IV fluids running, fall/safety precautions in place.
[2019-01-09 11:50] VITALS: BP_SYST 135
--- NOTE | 2019-01-09 11:54 | NUR ---
Discharge Planning: [facility] ([phone] p [phone]) Per Bryant pt accepted. DCP faxed updated progress and PT/RT notes.
[2019-01-09] MEDS ORDERED: SER25 PO (12:07)
[2019-01-09] MEDS ORDERED: TAMS-11 PO (12:08)
[2019-01-09] MEDS ORDERED: L.RH1CAP PO (12:09)
[2019-01-09] MEDS ORDERED: IPRA3AMP9 INH (12:09)
[2019-01-09] MEDS ORDERED: CEPH250C PO (12:09)
--- NOTE | 2019-01-09 13:10 | NUR ---
rounds, spoke to daughter patient resting in bed, IV fluids running, no signs of distress, spoke to daughter Rianna and gave her his prescriptions, she stated that she will be able to take him home around 1500 after her meeting.
--- NOTE | 2019-01-09 15:16 | NUR ---
rounds, spoke to patient resting in bed, IV fluids running, no signs of distress, spoke to Funmi from and informed me that daughter said she would vegetable picker Nebulizer from the [place] but seems like the daughter is unaware that the breathing treatments are scheduled and once daughter comes back to ask her if she knows how to use it or if she can go pick it up first before she takes the patient home. Addendum: 01/09/19 at 1545 by Polly Harris RN spoke to Funmi again informed me that she talked to the daughter and she said she would get the prescription and nebulizer first from the [place] but there is no confirmation if she will be able to get it today and understands the patient cannot go home without the nebulizer and medication, daughter will update me.
[2019-01-09 16:00] VITALS: BP_SYST 140
--- NOTE | 2019-01-09 17:10 | NUR ---
accuchek patient resting in bed, accuchek done, no other needs at this time, IV fluids running, fall/safety precautions in place.
[2019-01-09] MEDS ORDERED: QUEtiapine FUMARATE 25 MG TABLET PO SCH (18:00)
--- NOTE | 2019-01-09 18:45 | NUR ---
closing note patient is resting in bed, IV fluids running, no signs of distress, fall/safety precautions in place, daughter Rianna came earlier to inform me that she will not be able to get the nebulizer until tomorrow, Dr Ashby is aware of this, will endorse report to noc shift nurse to continue with care, do bladder Q shift and that blood sugar checks do not need insulin coverage it is just to make sure his blood sugar is not low patient has no history of DM.
--- NOTE | 2019-01-09 19:35 | NUR ---
ROUNDS PATIENT RESTING COMFORTABLY IN BED, NOT IN DISTRESS, VITALS STABLE. DENIES ANY PAIN AND DISCOMFORT AT THIS TIME. ASSESSMENT DONE AND DOCUMENTED. SEE FLOWSHEET. NEEDS ATTENDED TO. SAFETY AND FALL PRECAUTION MEASURES IN PLACED. BED IN LOW AND LOCKED POSITION. CALL LIGHT PLACED WITHIN REACH.
[2019-01-09 20:00] VITALS: BP_SYST 154
--- NOTE | 2019-01-09 21:05 | NUR ---
ACCU CHECK ACCU CHECK DONE, BLOOD SUGAR 140, NO INSULIN COVERAGE PER SLIDING SCALE. WILL CONTINUE TO MONITOR.
[2019-01-09] MEDS: ATORVASTATIN 10 MG TABLET PO SCH (22:10)
--- NOTE | 2019-01-10 00:14 | NUR ---
PATIENT RESTING: Patient resting quietly. No acute distress noted. Vital signs within normal range.
[2019-01-10 01:42] VITALS: BP_SYST 130
--- NOTE | 2019-01-10 02:13 | NUR ---
ROUNDS PATIENT ASLEEP, VITALS STABLE, NO PAIN AND DISCOMFORT NOTED. WILL CONTINUE TO MONITOR.
[2019-01-10] MEDS: IPRATROPIUM/ALBUTEROL SULFATE 3 ML AMPUL.NEB (DUONEB) INH SCH ×3 (03:10→11:16)
--- NOTE | 2019-01-10 04:13 | NUR ---
PATIENT RESTING: Patient resting quietly. No acute distress noted. Vital signs within normal range.
--- NOTE | 2019-01-10 06:42 | NUR ---
CLOSING NOTES PATIENT AWAKE, VITALS STABLE, NO PAIN AND DISCOMFORT AT THIS TIME. ACCU CHECK DONE, BLOOD SUGAR 107. BLADDER SCAN DONE ORDERED, VOLUME 0 ML. ALL NEEDS ATTENDED TO. SAFETY MEASURES MAINTAINED. CALL LIGHT PLACED WITHIN REACH.
[2019-01-10 08:00] VITALS: BP_SYST 132
--- NOTE | 2019-01-10 08:00 | NUR ---
initial notes rec patient asleep but arousable to stimuli. ivf infusing well on the l forearm. no infiltration noted. resp easy and unlabored. no sob noted. bed to the lowest position and side rails up and locked. call light withn reached and knows when to call for assists.
[2019-01-10] MEDS: TAMSULOSIN HCL 0.4 MG CAP PO SCH (08:54)
[2019-01-10] MEDS: cefTRIAXone 1 GM in D5W 50 ML IV SCH (08:54)
--- NOTE | 2019-01-10 10:00 | NUR ---
rounds confuse at intervals but does not get oob. bed alrm still on. no sob noted. bed to the lowest positon and side rails up and locked.
[2019-01-10 12:00] VITALS: BP_SYST 135
--- NOTE | 2019-01-10 12:00 | NUR ---
rounds no hypo hyperglycemic reaction noted. had a bowel movement and keep patient dry and cleaned.
--- NOTE | 2019-01-10 14:00 | NUR ---
annia whitmore waiting for margarita to inform us re the nebulizer to be used at home.
--- NOTE | 2019-01-10 14:48 | NUR ---
DC PLANNING: CM SPOKE WITH HALLE (PATIENT'S DAUGHTER) REGARDING NEBULIZER MACHINE. HALLE STATED SHE HAD THE NEBULIZER MACHINE AT HOME AND HOME HEALTH NURSE HAS CONTACTED HER AND WILL BE EVALUATING PATIENT TODAY 01/10/2019 AT HOME. CM INSTRUCTED HALLE TO HAVE RT PROVIDE TEACHING REGARDING HOW TO USE THE NEBULIZER MACHINE. HALLE VERBALIZED UNDERSTANDING.
[2019-01-10 15:01] VITALS: BP_SYST 135
--- NOTE | 2019-01-10 15:41 | NUR ---
closing notes pt was discharged home via wheelchair to there car. ivl and id band was removed. daughter margarita state the y have the nebulizer already at home and instructed to see the resp therapist for instructions re use. also stated that hh was already arranged as well as p.t no sob noted. stable and needs attended.
== END 2019-01-10 15:32 | disposition home health service (06) | DRG 190 ==
LOC: SED 19:06 → STU 23:14 → SMU 01-09 19:04
PROVIDERS: ADMIT Internal Medicine; ATTEND Internal Medicine
DX: J44.1 Chronic obstructive pulmonary disease with (acute) exacerbation (principal); G93.41 Metabolic encephalopathy; N39.0 Urinary tract infection, site not specified; E87.1 Hypo-osmolality and hyponatremia; E44.0 Moderate protein-calorie malnutrition; E78.5 Hyperlipidemia, unspecified; F03.90 Unspecified dementia, unspecified severity, without behavioral disturbance, psychotic disturbance, mood disturbance, and anxiety; T43.595A Adverse effect of other antipsychotics and neuroleptics, initial encounter; I10 Essential (primary) hypertension; F32.9 Major depressive disorder, single episode, unspecified; G20 Parkinson's disease; R53.83 Other fatigue; J84.10 Pulmonary fibrosis, unspecified; Z87.01 Personal history of pneumonia (recurrent); Z79.899 Other long term (current) drug therapy; Z86.73 Personal history of transient ischemic attack (TIA), and cerebral infarction without residual deficits; Z87.891 Personal history of nicotine dependence; Y92.89 Other specified places as the place of occurrence of the external cause
CPT/HCPCS: 36415; 70450-TC; 71045; 71250-TC; 76700-TC; 80048; 80053; 80061; 81000-TC; 82140-TC; 82962; 83605; 83735-TC; 84153; 84439; 84443-TC; 85025; 87040-TC; 87086; 93005; 94640; 96361; 96365; 97110-GP; 97530-GP; 99285; G0378; J0696; J1630; J1956; J2060; J7060; J7120; J7620

== ENCOUNTER 2019-01-25 15:02 | Emergency (ER) | payer OTHER ==
[~2019-01-25] VITALS: Ht 162.6 cm; Wt 56.7 kg
[~2019-01-25 15:02] MED LIST changes: -AMLO5TAB4 PO; +CEPH250C PO; +IPRA3AMP9 INH; +L.RH1CAP PO; -RISP0.253 PO; +SER25 PO; +TAMS-11 PO; -TRAZ-218 PO
[2019-01-25 15:27] VITALS: BP_SYST 98
--- NOTE | 2019-01-25 15:30 | NUR ---
patient BIB family member with c/o low blood pressure since morning. patient is AO to self with a history of dementia. patient is pleasent and follows simple commands. patient FLACC 0/10 pain. patient has no signs of truama and appears to be at baseline. patient has poor skin skin turgor. BP is 111/60. no other complaint or injury at this time.
--- NOTE | 2019-01-25 15:30 | NUR ---
Patient to ER bed 07 to gown for evaluation. Side rails up.
--- NOTE | 2019-01-25 16:00 | NUR ---
Medicated per MD orders. IVF infusing with no s/s of infiltration at this time. Will cont to monitor
--- NOTE | 2019-01-25 16:00 | NUR ---
# 18 gauge angiocath placed to LFA. Use of asceptic technique. Opsite placed over site. Blood return noted. Blood for lab drawn from site. Flushed with 10 cc of normal saline. No evidence of infiltration noted. Patient tolerated well.
--- NOTE | 2019-01-25 16:00 | NUR ---
ER at bedside examining patient.
[2019-01-25] MEDS ORDERED: NS 500 ML IV ONE (16:15)
[2019-01-25 16:54] LABS: BASOPHILS % (AUTO) 0.7 % (0.0-2.0); EOSINOPHILS # (AUTO) 0.1 K/uL (0.0-0.4); EOSINOPHILS % (AUTO) 1.6 % (0.0-4.0); HEMATOCRIT 42.4 % (36-54); HEMOGLOBIN 13.7 g/dL (14.0-18.0); LYMPHOCYTES # (AUTO) 1.1 K/uL (1.0-5.5); LYMPHOCYTES % (AUTO) 18.4 % (20.5-51.5); MEAN CORPUSCULAR HEMOGLOBIN 28 pg (27-31); MEAN CORPUSCULAR HGB CONC 32 % (32-36); MEAN CORPUSCULAR VOLUME 87 fL (79.0-98.0); MONOCYTES # (AUTO) 0.5 K/uL (0.0-1.0); NEUTROPHILS # (AUTO) 4.2 K/uL (1.8-7.7); NEUTROPHILS % (AUTO) 70.3 % (40.0-70.0); PLATELET COUNT (AUTO) 170 K/uL (130-430); RED BLOOD CELL COUNT(AUTO) 4.86 MIL/uL (4.2-6.2); RED CELL DISTRIBUTION WIDTH 14.7 % (9.0-15.0)
[2019-01-25 17:04] LABS: ANION GAP 7 (5-15); CALCIUM 8.3 mg/dL (8.4-11.0); CHLORIDE 110 mmol/L (98-107); CREATININE 1.05 mg/dL (0.55-1.30); GLUCOSE 95 mg/dL (70-99); POTASSIUM 4.4 mmol/L (3.5-5.1); SODIUM SERUM 145 mmol/L (136-145); UREA NITROGEN, BLOOD 19 mg/dL (8-21)
[2019-01-25 17:06] LABS: INR 1.1 (0.80-1.20); PROTHROMBIN TIME 10.8 SECS (9.5-12.5)
--- NOTE | 2019-01-25 17:12 | NUR ---
patient sent to radiology in stable condition.
[2019-01-25 17:15] LABS: ALANINE AMINOTRANSFERASE 37 U/L (12-78); ALBUMIN 2.7 g/dL (3.4-4.8); ASPARTATE AMINOTRANSFERASE 24 U/L (10-37); TOTAL BILIRUBIN 0.5 mg/dL (0.0-1.0)
--- NOTE | 2019-01-25 17:48 | NUR ---
urine collected and sent to lab
--- NOTE | 2019-01-25 18:00 | NUR ---
patient is stable recieving fluids
[2019-01-25 18:11] LABS: BILIRUBIN,URINE NEGATIVE (NEGATIVE); CLARITY/URINE CLEAR (CLEAR); COLOR,URINE YELLOW (YELLOW); GLUCOSE,URINE NEGATIVE (NEGATIVE); KETONES,URINE NEGATIVE (NEGATIVE); LEUKOCYTE ESTERASE ,URINE NEGATIVE (NEGATIVE); NITRITE, URINE NEGATIVE (NEGATIVE); PH,URINE 7.5 (5.0-8.0); PROTEIN URINE NEGATIVE (NEGATIVE)
[2019-01-25 18:23] LABS: BLOOD, URINE TRACE (NEGATIVE)
[2019-01-25 18:25] LABS: BACTERIA,URINE FEW /HPF (None Seen); MUCUS,URINE None Seen /LPF (None Seen); RBC,URINE 0-3 /HPF (0-3); WBC,URINE 0-3 /HPF (0-3)
[2019-01-25] MEDS ORDERED: NACL 0.9% 1,000 ML IV ONE (18:45)
--- NOTE | 2019-01-25 19:00 | NUR ---
patient VSS stable
[2019-01-25 20:00] VITALS: BP_SYST 110
--- NOTE | 2019-01-25 20:00 | NUR ---
Patient given written and verbal discharge instructions and verbalizes understanding. ER MD discussed with patient the results and treatment provided. Patient in stable condition. ID arm band removed. IV catheter removed intact and dressing applied, no active bleeding. Rx of zero given. Patient educated on pain management and to follow up with PMD. Pain Scale 0/10. Opportunity for questions provided and answered. Medication side effect fact sheet provided.
== END 2019-01-25 20:00 | disposition home or self-care (01) ==
LOC: SED 15:02
DX: E86.0 Dehydration (principal); F32.9 Major depressive disorder, single episode, unspecified; I10 Essential (primary) hypertension; E78.5 Hyperlipidemia, unspecified; Z86.79 Personal history of other diseases of the circulatory system; Z86.73 Personal history of transient ischemic attack (TIA), and cerebral infarction without residual deficits; Z79.899 Other long term (current) drug therapy
CPT/HCPCS: 36415; 71045; 71250; 80053; 81000; 83605; 84484; 85025; 85610; 85730; 87040; 87086; 93005; 96360; 96361; 99284; J7030; J7040

== ENCOUNTER 2019-06-02 14:46 | Emergency (ER) | payer OTHER ==
[~2019-06-02] VITALS: Ht 172.7 cm; Wt 59.0 kg
[2019-06-02 14:50] VITALS: BP_SYST 105
--- NOTE | 2019-06-02 14:50 | NUR ---
Patient to ER bed 04 to gown for evaluation. Side rails up.
--- NOTE | 2019-06-02 14:52 | NUR ---
Patient arrived in the ED c/o shortness of breath, wheezing, and shallow breathing that started yesterday. Denied any fevers, chills, N/V. Patient is alert and oriented x2, rales heard on BLL, non-verbal. VSS. Informed of wait time. Son at bedside. Instructed to notify ED staff of any changes in condition or worsening of symptoms. Patient's son verbalized understanding.
[2019-06-02] MEDS ORDERED: NACL 0.9% 1,000 ML IV ONE (15:12)
[2019-06-02] MEDS ORDERED: methylPREDNISolone SOD SUCC/PF 62.5 MG/ML VIAL IVP ONE (15:15)
[2019-06-02] MEDS ORDERED: IPRATROPIUM BROM 0.5 MG/2.5 ML VIAL.NEB (ATROVENT) INH ONE (15:15)
--- NOTE | 2019-06-02 15:15 | NUR ---
Respiratory thrapist at bedside administering breathing treatment. Patient is tolerating the treatment well.
--- NOTE | 2019-06-02 15:18 | NUR ---
ER Dr. Jimenez at bedside examining patient.
--- NOTE | 2019-06-02 15:22 | NUR ---
ECG done at bedside as ordered by Dr. Jimenez. Patient tolerated thr procedure well. Report given to .
[2019-06-02 16:23] LABS: BASOPHILS % (AUTO) 0.5 % (0.0-2.0); EOSINOPHILS # (AUTO) 0.1 K/uL (0.0-0.4); EOSINOPHILS % (AUTO) 0.7 % (0.0-4.0); LYMPHOCYTES # (AUTO) 1.6 K/uL (1.0-5.5); LYMPHOCYTES % (AUTO) 18.1 % (20.5-51.5); MEAN CORPUSCULAR HEMOGLOBIN 29 pg (27-31); MEAN CORPUSCULAR HGB CONC 33 % (32-36); MEAN CORPUSCULAR VOLUME 86 fL (79.0-98.0); MONOCYTES % (AUTO) 10.7 % (1.7-9.3); NEUTROPHILS # (AUTO) 6.3 K/uL (1.8-7.7); PLATELET COUNT (AUTO) 133 K/uL (130-430); RED BLOOD CELL COUNT(AUTO) 5.23 MIL/uL (4.2-6.2); RED CELL DISTRIBUTION WIDTH 14.7 % (9.0-15.0); WHITE BLOOD COUNT (AUTO) 9.1 K/uL (4.8-10.8)
[2019-06-02 16:46] LABS: PROTHROMBIN TIME 10.3 SECS (9.5-12.5)
[2019-06-02 17:14] LABS: ANION GAP 6 (5-15); CALCIUM 7.8 mg/dL (8.4-11.0); CHLORIDE 105 mmol/L (98-107); CREATININE 0.85 mg/dL (0.55-1.30); GLUCOSE 73 mg/dL (70-99); POTASSIUM 3.7 mmol/L (3.5-5.1); SODIUM SERUM 138 mmol/L (136-145); UREA NITROGEN, BLOOD 16 mg/dL (8-21)
[2019-06-02 17:20] LABS: ALANINE AMINOTRANSFERASE 28 U/L (12-78); ALBUMIN 2.8 g/dL (3.4-4.8); AMYLASE 48 U/L (0-100); ASPARTATE AMINOTRANSFERASE 21 U/L (10-37); LIPASE 64 U/L (73-393); TOTAL BILIRUBIN 0.8 mg/dL (0.0-1.0)
--- NOTE | 2019-06-02 17:20 | NUR ---
Urine specimen collected using midstream catch. Specimen dropped off at the lab.
[2019-06-02 17:29] LABS: BILIRUBIN,URINE NEGATIVE (NEGATIVE); BLOOD, URINE 1+ (NEGATIVE); CLARITY/URINE CLEAR (CLEAR); COLOR,URINE YELLOW (YELLOW); GLUCOSE,URINE NEGATIVE (NEGATIVE); KETONES,URINE NEGATIVE (NEGATIVE); LEUKOCYTE ESTERASE ,URINE NEGATIVE (NEGATIVE); NITRITE, URINE NEGATIVE (NEGATIVE); PH,URINE 5.5 (5.0-8.0); PROTEIN URINE NEGATIVE (NEGATIVE); UROBILINOGEN,URINE 0.2 (0.2-1.0)
[2019-06-02 17:37] LABS: BACTERIA,URINE FEW /HPF (None Seen); HYALINE CASTS, URINE 0-10 /LPF (None Seen); MUCUS,URINE 2+ /LPF (None Seen); WBC,URINE 0-3 /HPF (0-3)
[2019-06-02 18:30] VITALS: BP_SYST 141
--- NOTE | 2019-06-02 18:30 | NUR ---
Patient given written and verbal discharge instructions and verbalizes understanding. ER MD discussed with patient the results and treatment provided. Patient in stable condition. ID arm band removed. IV catheter removed intact and dressing applied, no active bleeding. Rx of PREDNISONE, AZITHROMYCIN & ALBUTEROL given. Patient educated on pain management and to follow up with PMD. Pain Scale 0/10 . Opportunity for questions provided and answered. Medication side effect fact sheet provided.
== END 2019-06-02 18:30 | disposition home or self-care (01) ==
LOC: SED 14:46
DX: J44.1 Chronic obstructive pulmonary disease with (acute) exacerbation (principal); F03.90 Unspecified dementia, unspecified severity, without behavioral disturbance, psychotic disturbance, mood disturbance, and anxiety; E78.5 Hyperlipidemia, unspecified; I10 Essential (primary) hypertension; Z87.891 Personal history of nicotine dependence; Z79.899 Other long term (current) drug therapy
CPT/HCPCS: 36415; 71045; 80053; 81000; 82150; 82550; 83605; 83690; 83880; 84484; 85025; 85610; 85730; 87040; 93005; 94640; 96374; 99284; J2930; J7030